=== PATIENT | male | born 1950 | race Caucasian/White ===

== ENCOUNTER 2020-05-22 00:08 | Outpatient (CLI) | payer BC, SELFPAY ==
[2020-05-22 17:26] LABS: SARS-CoV-2 RNA PCR Negative
== END 2020-05-22 00:09 | disposition home or self-care (01) ==
LOC: ANHCOVIDDT 00:08
PROVIDERS: PCP Family Medicine; Visit Provider Internal Medicine Gastroenterology
DX: Z01.812 Encounter for preprocedural laboratory examination (principal); Z20.828 Contact with and (suspected) exposure to other viral communicable diseases
CPT/HCPCS: 87635; C9803; U0003

== ENCOUNTER 2020-05-24 02:12 | Day surgery (SDC) | payer BC, SELFPAY ==
[2020-05-17 13:37] VITALS: BMI 24.2
--- NOTE | 2020-05-23 13:11 | P.PNAN_ITS ---
Anes - Initial Pre Proc Eval Procedure: Operation Date: 05/24/20 08:30 Proposed Procedures p Screening Colonoscopy - Moise Stevenson MD Date/Time: 05/23/20 13:11 Surgeon: Moise Stevenson MD Pre Op Diagnosis: Neoplasm Screening/ Hx Colon Polyps Patient Data Age: 70 Gender: M Height: 1.91 m Weight: 88 kg Allergies Allergy/AdvReac Type Severity Reaction Status Date / Time No Known Allergies Allergy Verified 05/17/20 13:30 Home Medications Medication Instructions Recorded Confirmed Type amiodarone 200 mg tablet 200 mg PO BID tablet 08/02/19 05/17/20 History apixaban 5 mg tablet 5 mg PO BID 08/02/19 05/24/20 History diltiazem HCl 120 mg capsule,24 120 mg PO DAILY 08/02/19 05/17/20 History hr,extended release lisinopril 20 mg tablet 20 mg PO DAILY 08/02/19 05/17/20 History sildenafil 100 mg tablet 100 mg PO DAILY PRN #10 tablet 08/03/19 03/19/20 Rx Patient hx anesthesia problems: none Family hx anesthesia problems: none [facility] Past Medical History Medical History (Updated 03/19/20 @ 14:49 by Delmer Pérez MD) Carpal tunnel syndrome, bilateral CKD (chronic kidney disease) stage 3, GFR 30-59 ml/min Essential (primary) hypertension History of cardioversion 03/2018 History of rectal polyps Paroxysmal atrial fibrillation Right wrist fracture Surgical History Surgical History (Updated 03/19/20 @ 14:18 by Delmer Pérez MD) History of bunionectomy of right great toe 1999 History of carpal tunnel surgery b/l 2012- 2014 Social History Social History Smoking status: Never smoker Second hand tobacco smoke exposure: No Alcohol intake: current Drinks per week: 4 Substance use: never Substance use type: does not use Living arrangements: with family Gender identity (if verbalized by the patient): Male Spiritual care concerns: No Anes - Eval Final PreProcedure Day of Procedure 05/23/20 13:11 Patient weight: normal Heart: regular rate and rhythm Lungs: clear to auscultation and normal air movement Airway: Mallampati scale class II Neurological: alert and oriented Last oral intake: >/= 8 hours ASA classification: III Emergent: no Anesthetic plan: proceed Anesthesia type and monitoring: general GIVS and standard monitoring Informed Consent: The patient's anesthetic plan and its attendant risks and benefits were discussed with the patient/family/POA. Questions were solicited and answers provided to the satisfaction of the patient/family/POA.
[2020-05-24 07:44] VITALS: BP 167/91; PULSE 58; RESP 16; TEMP 36.7; O2SAT 98; BMI 24.7
[2020-05-24] MEDS: LACTATED RINGERS 1,000 ML 150 ML IV CONT (07:55)
--- NOTE | 2020-05-24 08:49 | WPDGICN ---
Assessment and Plan Assessment and plan (1) History of colon polyps: Code(s): Z86.010 - Personal history of colonic polyps Status: Acute Assessment and Plan: Patient has had recurrent colon polyps on several previous colonoscopies. Plan is for colonoscopy now and several year intervals in the future. Eliquis will be held briefly for this procedure. (2) Paroxysmal atrial fibrillation: Code(s): I48.0 - Paroxysmal atrial fibrillation Status: Acute GI Consult Note Consult date/time: 05/24/20 08:49 HPI: Ryan Veloz is a 70 year old male Seen in evaluation at the request of Dr. Pérez. Patient presents for screening colonoscopy. Patient has a history of colon polyps own several previous colonoscopies. Most recent colonoscopy in 2016 so does several tubular adenomas. Patient states that his current weight appetite bowel movements are normal. Patient denies abdominal pain. He has had no blood in his stools. His weight has remained stable. Family history is noncontributory. Past medical history is significant for atrial fibrillation on Eliquis and Pacerone. Review of Systems Review of Systems: All systems reviewed & are unremarkable except as noted in HPI and below PMFSH Past Medical History Medical History (Updated 05/24/20 @ 08:51 by Moise Stevenson MD) Carpal tunnel syndrome, bilateral CKD (chronic kidney disease) stage 3, GFR 30-59 ml/min Essential (primary) hypertension History of cardioversion 03/2018 History of rectal polyps Paroxysmal atrial fibrillation Right wrist fracture Surgical History Surgical History (Updated 03/19/20 @ 14:18 by Delmer Pérez MD) History of bunionectomy of right great toe 1999 History of carpal tunnel surgery b/l 2012- 2014 Social History Social History Smoking status: Never smoker Second hand tobacco smoke exposure: No Alcohol intake: current Drinks per week: 4 Substance use: never Substance use type: does not use Living arrangements: with family Gender identity (if verbalized by the patient): Male Spiritual care concerns: No Meds Home Medications and Allergies Home Medications Medication Instructions Recorded Confirmed Type amiodarone 200 mg tablet 200 mg PO BID tablet 08/02/19 05/17/20 History apixaban 5 mg tablet 5 mg PO BID 08/02/19 05/24/20 History diltiazem HCl 120 mg capsule,24 120 mg PO DAILY 08/02/19 05/17/20 History hr,extended release lisinopril 20 mg tablet 20 mg PO DAILY 08/02/19 05/17/20 History sildenafil 100 mg tablet 100 mg PO DAILY PRN #10 tablet 08/03/19 03/19/20 Rx Allergies Allergy/AdvReac Type Severity Reaction Status Date / Time No Known Allergies Allergy Verified 05/17/20 13:30 Vital Signs Vital Signs - 24 hr 05/24/20 07:44 Temperature 98.1 F Pulse Rate 58 L Respiratory Rate 16 Blood Pressure 167/91 H Pulse Oximetry 98 Exam Narrative: Exam Narrative: Physical exam reveals patient to be alert. Vital signs stable. HEENT exam unremarkable. Lungs are clear to auscultation and percussion. Heart is without murmur or extra sounds. Abdominal exam bowel sounds are present soft nontender with no organomegaly. Digital external rectal exam is normal.
[2020-05-24 09:16] VITALS: BP 117/59; PULSE 45; RESP 13; O2SAT 97
[2020-05-24 09:26] VITALS: BP 109/55; PULSE 46; RESP 13; O2SAT 98
[2020-05-24 09:36] VITALS: BP 138/68; PULSE 49; RESP 15; O2SAT 98
== END 2020-05-24 09:46 | disposition home or self-care (01) ==
PROVIDERS: PCP Family Medicine; Visit Provider Internal Medicine Gastroenterology
PROC: 0DJD8ZZ Inspection of Lower Intestinal Tract, Via Natural or Artificial Opening Endoscopic (ICD-10-PCS; CPT 45378; principal; 2020-05-24 08:30)
DX: Z12.11 Encounter for screening for malignant neoplasm of colon (principal); D12.4 Benign neoplasm of descending colon; K64.8 Other hemorrhoids; I48.0 Paroxysmal atrial fibrillation; Z79.01 Long term (current) use of anticoagulants; I12.9 Hypertensive chronic kidney disease with stage 1 through stage 4 chronic kidney disease, or unspecified chronic kidney disease; N18.3 Chronic kidney disease, stage 3 (moderate); Z86.010 Personal history of colon polyps
CPT/HCPCS: 45385; 88305; J2704; J7120

== ENCOUNTER 2020-06-06 08:40 | Outpatient (CLI) | payer BC, SELFPAY ==
--- NOTE | 2020-06-13 09:22 | WPDPFTINT ---
PFT Interpretation PFT Interpretation: DOS: 06/06/2020 REQUESTING: Dr Keith Connelly REASON FOR TESTING: paroxysmal afib PULMONARY FUNCTION TESTS Results are reliable and reproducible. Spirometry: FEV1 is 79%, mildly decreased. FVC 89%, normal. Decreased FEV1% consistent with airflow obstruction. MPX50-68% severely decreased 44% predicted. No bronchodilator was given. Lung volumes: TLC 106, normal. RV increased 125% consistent with mild air trapping. Diffusion: DLCO 87%, normal. Flow volume loop: Scooping of the expiratory limb consistent with air flow obstruction. IMPRESSION: Mild obstructive ventilatory impairment, severe in the small airways with air trapping, normal diffusion. No bronchodilator was given. Elena Torres MD
--- NOTE | 2020-06-13 09:30 | WPDSIXMINUTE ---
Six Minute Walk Six Minute Walk: DOS: 06/06/2020 REQUESTING: Dr. Keith Connelly REASON FOR TESTING: Paroxysmal atrial fib SIX MINUTE WALK This test was conducted per ATS guidelines. THe
== END 2020-06-06 08:41 | disposition home or self-care (01) ==
PROVIDERS: PCP Family Medicine; Visit Provider Internal Medicine Cardiovascular Disease
DX: I48.0 Paroxysmal atrial fibrillation (principal); J98.8 Other specified respiratory disorders
CPT/HCPCS: 94375; 94726; 94729

== ENCOUNTER 2020-08-08 06:58 | Outpatient (NON) | payer BC, SELFPAY ==
[2020-08-08 23:27] LABS: SARS-CoV-2 RNA PCR Positive
== END 2020-08-08 06:59 ==
PROVIDERS: PCP Family Medicine; Visit Provider Family Medicine
DX: U07.1 COVID-19 (principal)
CPT/HCPCS: 87635; C9803; U0003

== ENCOUNTER 2021-01-21 13:49 | Outpatient (CLI) | payer BC, SELFPAY ==
--- NOTE | ~2021-01-21 | XR_ITS ---
XR lumbar spine 2-3V DATE: 01/21/2021 14:11 INDICATION: Right sciatica. Recent twisting injury. TECHNIQUE: AP, lateral, coned lateral lumbosacral views COMPARISON: None FINDINGS: Minimal levoscoliosis of the lumbar spine. Mild anterolisthesis at L3-4 due to degenerative change at the apophyseal joints. Mild grade 1 anterolisthesis at L5-S1 with suggestion of possible L5 pars inter-articular is defects. Otherwise normal alignment of the lumbar spine. No fracture or bone destruction is evident. Included T11-L5 pedicles are intact. Moderately prominent degenerative disc disease at L1 to, L3-4 and mild degenerative disc disease at t he remaining lumbar interspaces. The sacroiliac joints are intact. Abdominal aortic calcification without evidence of aneurysm. IMPRESSION: Multilevel degenerative disc disease Grade 1 anterolisthesis at L3-4 due to degenerative changes apophyseal joints Grade 1 anterolisthesis at L5-S1, possibly due to L5 pars defects. Consider oblique views of lumbar s pine or CT for confirmation or exclusion of pars defects. Reviewed, dictated and finalized at location A. IMPRESSION: Multilevel degenerative disc disease Grade 1 anterolisthesis at L3-4 due to degenerative changes apophyseal joints Grade 1 anterolisthesis at L5-S1, possibly due to L5 pars defects. Consider obl ique views of lumbar spine or CT for confirmation or exclusion of pars defects.
== END 2021-01-21 13:50 | disposition home or self-care (01) ==
PROVIDERS: PCP Family Medicine; Visit Provider Family Medicine
DX: M54.31 Sciatica, right side (principal); M47.817 Spondylosis without myelopathy or radiculopathy, lumbosacral region
CPT/HCPCS: 72100

== ENCOUNTER 2021-07-25 08:40 | Outpatient (CLI) | payer BC, SELFPAY ==
--- NOTE | ~2021-07-25 | US_ITS ---
EXAMINATION: US art doppler w aleisha BULL EXAM DATE: 07/25/2021 09:23 INDICATION: Peripheral vascular disease. TECHNIQUE: Segmental pressures and plethysmographic and Doppler waveforms of the brachial and lower e xtremity arteries were obtained. There is no prior study for comparison. FINDINGS: Right and left brachial artery pressures of 115 mm Hg and 105 mm Hg, respectively, are concordant (no rmal difference <= 30 mmHg). The right and left thigh-brachial pressure indices are 1.24, 1.17, resp ectively (normal > 1.2). RIGHT LEG: The ankle-brachial index (GLADIS) is 1.10 (normal >= 0.9-1). The great toe-brachial index (TBI) is 0.57 (normal >= 0.65). The lower extremity ratios, segmental pressure gradients as follows; Proximal superficial femoral artery:- 1.24 (143 mmHg). Distal superficial femoral artery: ----- 1.04 (120 mmHg). Popliteal: 1.30 (149 mmHg). Dorsalis pedis: 1.03 (119 mmHg). Posterior tibial: 1.10 (126 mmHg). (Normal gradients <= 20-30 mmHg between adjacent levels on the same leg or the same levels on the two legs). Arterial waveforms are biphasic through popliteal, monophas ic below. LEFT LEG: The ankle-brachial index (GLADIS) is 0.99 (normal >= 0.9-1). The great toe-brachial index (TBI) is 0.62 (normal >= 0.65). The lower extremity ratios, segmental pressure gradients as follows; Proximal superficial femoral artery:- 1.17 (134 mmHg). Distal superficial femoral artery: ----- 1.10 (127 mmHg). Popliteal: 1.10 (127 mmHg). Dorsalis pedis: 0.97 (112 mmHg). Posterior tibial: 0.99 (114 mmHg). (Normal gradients <= 20-30 mmHg between adjacent levels on the same leg or the same levels on the two legs). Arterial waveforms are biphasic through posterior tibial, m onophasic dorsalis pedis. IMPRESSION: 1. Right ankle-brachial index 1.10, normal. 2. Left ankle-brachial index 0.99, normal. 3. Segmental pressures as above. Reviewed, dictated and finalized at location B. R [employer]AK REPA[employer]ER
== END 2021-07-25 08:41 | disposition home or self-care (01) ==
PROVIDERS: PCP Family Medicine; Visit Provider Podiatrist Foot & Ankle Surgery
DX: I73.9 Peripheral vascular disease, unspecified (principal)
CPT/HCPCS: 93923

== ENCOUNTER 2022-05-25 17:17 | Emergency (ER) | payer BC, SELFPAY ==
[2022-05-25] VITALS (12 sets, daily range): BP systolic 130–185; BP diastolic 90–115; PULSE 69–86; RESP 13–17; TEMP 37; O2SAT 97–100
--- NOTE | ~2022-05-25 | XR_ITS ---
EXAMINATION: XR chest 1V portable Exam Date/Time: 05/25/2022 17:40 CDT HISTORY: cp Comparison: None available. RESULT: Lines, tubes, and devices: None. Lungs and pleura: Linear bibasilar opacities likely represent atelectasis or scar, otherwise clear. Cardiomediastinal silhouette: Stable. Other: No acute osseous or upper abdominal finding. IMPRESSION: No acute cardiopulmonary process. Reviewed, dictated and finalized at location K.
--- NOTE | 2022-05-25 17:18 | ECG_ITS ---
Measurements Intervals [place] Rate: 89 P: TX: 0 QRS: 20 QRSD: 89 T: 33 QT: 362 QTc: 441 Interpretive Statements ATRIAL FIBRILLATION LOW QRS VOLTAGE IN PRECORDIAL LEADS BORDERLINE ST-T WAVE ABNORMALITY- INFERIOR LEADS BASELINE ARTIFACT- II, III, AVF ABNORMAL ECG NO PREVIOUS ECG AVAILABLE FOR COMPARISON Electronically Signed On 05-25-2022 21:48:13 CDT by Joey Brown D.O.
[2022-05-25 17:42] LABS: Basophils Percent Auto 0.4 % (0.2-1.2); Eosinophils Absolute Auto 0.1 K/mm3 (0-0.3); Eosinophils Percent Auto 1.4 % (0-4.4); Hematocrit 45.3 % (42.0-52.0); Hemoglobin 14.8 g/dL (14.0-18.0); Immature Granulocyte Absolute 0.03 K/mm3 (0.00-0.031); Immature Granulocyte Percent A 0.3 % (0-0.5); Lymphocytes Absolute Auto 2.41 K/mm3 (0.9-3.2); Lymphocytes Percent Auto 23.4 % (18.3-44.2); Mean Corpuscular HGB Conc 32.7 g/dl (32-36); Mean Corpuscular Hemoglobin 31.2 pg (26-34); Mean Corpuscular Volume 95.6 fl (80-100); Mean Platelet Volume 10.8 fl (7.4-10.4); Monocytes Absolute Auto 0.9 K/mm3 (0.1-0.6); Monocytes Percent Auto 8.8 % (2.6-8.5); Neutrophils Absolute Auto 6.8 K/mm3 (1.3-6.7); Neutrophils Percent Auto 65.7 % (45.5-73.1); Platelet Count Result 200 k/mm3 (150-375); Red Blood Count 4.74 M/mm3 (4.6-6.20); Red Cell Distribution Width 13.9 % (11.5-14.5); White Blood Count 10.3 K/mm3 (4.5-10.0)
[2022-05-25 17:51] LABS: INR 1.1; Prothrombin Time 14.1 Seconds (11.1-14.7)
[2022-05-25 17:52] LABS: Partial Thromboplastin Time 26.4 SECONDS (22.3-36.8)
--- NOTE | 2022-05-25 17:52 | ED.CHESTPAIN ---
HPI - Chest Pain General Chief Complaint: Chest Pain Stated Complaint: HTN/ CHEST DISCOMFORT Time Seen by Provider: 05/25/22 17:43 History of Present Illness HPI narrative: 72-year-old male history of hypertension and A. fib presents to the emergency room for evaluation of midsternal chest pain that has been consistently present since yesterday after eating dinner. Patient describes the pain as a dull/pressure sensation that is not alleviated or aggravated by anything. Patient states last night when he began developing the chest pressure, he went home to evaluate his blood pressure noticing that it was high for him. Patient denies any associated symptoms such as shortness of breath, dizziness, radiating pain or near syncope. Related Data Home Medications Medication Instructions Recorded Confirmed apixaban 5 mg tablet (Eliquis) 5 mg PO BID 08/02/19 04/01/21 diltiazem HCl 120 mg capsule,24 120 mg PO DAILY 08/02/19 04/01/21 hr,extended release lisinopril 20 mg tablet 20 mg PO DAILY 08/02/19 04/01/21 amiodarone 400 mg tablet 400 mg PO BID 12/28/20 04/01/21 Allergies Allergy/AdvReac Type Severity Reaction Status Date / Time No Known Allergies Allergy Verified 05/25/22 17:22 Review of Systems Review of Systems: CONSTITUTIONAL: Denies fever, chills, or sweats. EYES: Denies visual changes, redness, or discharge. ENT: Denies rhinorrhea, congestion, sore throat, or otalgia. CARDIOVASCULAR: Reports chest pain, denies palpitations and edema. RESPIRATORY: Denies cough or dyspnea. GASTROINTESTINAL: Denies abdominal pain, nausea, vomiting, or diarrhea. GENITOURINARY: Denies dysuria or hematuria. SKIN: Denies rash or itching. MUSCULOSKELETAL: Denies back pain, joint pain, or myalgia. NEUROLOGIC: Denies headache, numbness, dizziness, or weakness. PSYCHIATRIC: Denies anxiety or depression. [facility] Past Medical History Medical History Carpal tunnel syndrome, bilateral CKD (chronic kidney disease) stage 3, GFR 30-59 ml/min Essential (primary) hypertension History of cardioversion 03/2018 History of rectal polyps Paroxysmal atrial fibrillation Right wrist fracture Surgical History Surgical History History of bunionectomy of right great toe 1999 History of carpal tunnel surgery b/l 2012- 2014 Family History Family History Other No pertinent family history Social History Social History Smoking status: Never smoker Second hand tobacco smoke exposure: No Alcohol intake: current Drinks per week: 4 Substance use: never Substance use type: does not use Additional living arrangements comments: Gender identity (if verbalized by the patient): Male Spiritual care concerns: No Exam Narrative: GENERAL: Well-appearing, well-nourished, no physical limitations, and in no acute distress. HEAD: Normocephalic, atraumatic. EYES: Conjunctivae normal, PERRLA and EOMI. CHEST: Clear to auscultation. No respiratory distress. No wheezes rales or rhonchi. No tenderness. HEART: Irregular rate and irregular rhythm. No murmur heard. Normal peripheral pulses. ABDOMEN: Soft, nontender, nondistended, normal active bowel sounds. EXTREMITIES: Normal range of motion. No edema. No clubbing or cyanosis SKIN: Warm, dry, no rash. No noted wounds NEURO: No focal deficits. Alert and oriented x3. MAEW. CN's II-XI intact bilaterally, normal gait PSYCH: Cooperative. Normal mood and affect. Course Course Emergency Course: 1999: Patient is pain free. Discussed findings, and his heart score. Recommended admission for observation. Patient is requesting to go home. Discussed risks and benefits of not continuing evaluation, and reasons to return to the ER. Vital Signs Vital signs: Vital Signs Temperature 37.0
[2022-05-25] MEDS: ASPIRIN 81 MG CHEWABLE TABLET 324 MG PO (18:00)
--- NOTE | 2022-05-25 19:22 | PC.NURSE ---
Assumed care of pt at this time. Pt alert and upright on stretcher, updated on POC. Pt able to ambulate with steady gait to restroom.
--- NOTE | 2022-05-25 19:44 | PC.NURSE ---
This RN called laboratory to follow up on Chemistry results. Stated they will result soon.
[2022-05-25 19:48] LABS: Alanine Aminotransferase 22 U/L (6-50); Albumin Level 4.2 g/dL (3.5-5.1); Alkaline Phosphatase 64 U/L (38-126); Anion Gap 11 mmol/L (8-16); Aspartate Amino Transferase 26 U/L (17-59); Bilirubin,Total 0.8 mg/dL (0.2-1.3); Blood Urea Nitrogen 17 mg/dL (9-20); Calcium 8.6 mg/dL (8.4-10.2); Carbon Dioxide 25 mmol/L (22-30); Chloride 105 mmol/L (98-107); Estimated CRCL calculation 69 ml/min; Estimated Glomerular Filt Rate > 60; Glucose 93 mg/dL (65-110); Lipase 69 U/L (23-300); Potassium 3.8 mmol/L (3.4-5.0); Sodium 141 mmol/L (137-145); Troponin I < 0.012 ng/mL (0.000-0.034)
== END 2022-05-25 20:10 | disposition home or self-care (01) ==
PROVIDERS: Emergency Medicine; Emergency Provider Nurse Practitioner Family; PCP Family Medicine
DX: R07.89 Other chest pain (principal); I12.9 Hypertensive chronic kidney disease with stage 1 through stage 4 chronic kidney disease, or unspecified chronic kidney disease; N18.30 Chronic kidney disease, stage 3 unspecified; I48.0 Paroxysmal atrial fibrillation; Z79.01 Long term (current) use of anticoagulants
CPT/HCPCS: 36415; 71045; 80053; 83690; 84484; 85025; 85610; 85730; 93005; 99284; A9270

== ENCOUNTER 2022-06-09 08:05 | Outpatient (CLI) | payer BC, SELFPAY ==
[2022-06-09 20:13] LABS: Cholesterol 168 mg/dL (0-200); HDL Direct 44 mg/dL; Triglycerides 92 mg/dL (<150)
[2022-06-09 20:27] LABS: LDL Cholesterol Direct 100 mg/dL
[2022-06-09 20:49] LABS: Prostate Specific Antigen 1.4 ng/mL (< OR = 4.0)
== END 2022-06-09 08:06 | disposition home or self-care (01) ==
LOC: ANHGOSHLAB 08:06
PROVIDERS: PCP Family Medicine; Visit Provider Nurse Practitioner
DX: Z12.5 Encounter for screening for malignant neoplasm of prostate (principal); I10 Essential (primary) hypertension
CPT/HCPCS: 36415; 80061; 84153; G0103

== ENCOUNTER 2022-10-30 07:57 | Outpatient (CLI) | payer BC, SELFPAY | END 2022-10-30 07:58 | disposition home or self-care (01) | PROVIDERS: PCP Family Medicine; Visit Provider Surgery | DX: K40.90 Unilateral inguinal hernia, without obstruction or gangrene, not specified as recurrent (principal); Z01.818 Encounter for other preprocedural examination | CPT/HCPCS: 36415; 86850; 86900; 86901 ==

== ENCOUNTER 2022-11-05 00:33 | Day surgery (SDC) | payer BC, SELFPAY ==
--- NOTE | 2022-10-29 15:27 | PC.NURSE ---
Report to the Outpatient Waiting Room, entrance under the green pavilion located off [address], at time __0900 on date _11/05/22 . Planned Procedure Time: __1100 . Time changes happen often and if your time is changed the preop area will call you the afternoon before. - You and your visitor will be asked to self-screen and do not enter if you have any COVID symptoms. - Only one visitor is requested with a max of two and NO children visitors are allowed at this time. - The patient visitor may be requested to leave or wait in car when not with patient due to distancing restrictions. - A mask is optional within the hospital at this time. Patients may have clear liquids (water, carbonated beverages, clear teas, apple juice) until 3 hours prior to surgery with a maximum of 20 ounces. - No food from midnight until time of surgery - Infants may have breast milk until 4 hours before surgery, formula 6 hours prior to surgery. - Children will be allowed to drink immediately following surgery. If applicable, please bring a bottle or sippy cup to assist with drinking. Juice, water, soda, and popsicles are readily available. For infants on formula, please bring formula the day of surgery. Pacifiers are allowed. Take the following medications with a SIP of water the morning of surgery: __NONE DO NOT STOP ANY OF YOUR OTHER PRESCRIPTION MEDICATIONS PRIOR TO SURGERY ?EXCEPT THE FOLLOWING Medications to discontinue per physician __PATIENT STATES HOLD ELIQUIS 2 DAYS PRE OP PER DR HARDEN. LAST DOSE 11/02/22. ALL VITAMINS 3 DAYS PRE OP. LAST DOSE 11/01/22 HIBICLENS SHOWER MORNING OF SURGERY Please no make-up, nail spanish, hairspray, perfume, deodorant, or body powder the day of surgery. No jewelry (including any body piercings) or valuables the day of surgery, leave them at home. Please take a shower or bath the night before, or the morning of, surgery with an antibacterial soap. Wear comfortable, loose fitting clothing. Children are encouraged to wear pajamas. - Jewelry must be removed prior to entering the operating room. Rings and piercings that are not removed may be cut off. - The hospital will not accept responsibility for valuables. - Please leave all valuables, including medications, at home the day of surgery. If you are going home after surgery, a licensed bellman driver must drive you home. - NO public transportation without another adult if you receive anesthesia. - We recommend that an adult stay with you for 24 hours following discharge. - We also recommend that you do not drive, make important decision, drink alcoholic beverages, or take any drugs that were not prescribed by your health care provider for at least 24 hours after your discharge syeda Follow any additional instructions given to you from your surgeon. If you or anyone in your household have experienced Covid symptoms in the past week, please notify your surgeon or the nurse liaison at the phone number below for possible testing. Telephone instructions given to ___PATIENT and asked if any additional questions and then verbalized understanding. Patient advised to call surgeon office or pre surgery nurse liaison [phone] if any additional questions.
[2022-10-29 15:38] VITALS: BMI 25.7
[2022-11-05] VITALS (8 sets, daily range): BP systolic 118–146; BP diastolic 72–98; PULSE 78–104; RESP 13–18; TEMP 36.5–36.7; O2SAT 94–98
--- NOTE | 2022-11-05 08:20 | WPDHPUPDATE1 ---
History and Physical Update Update Date/Time: 11/05/22 08:20 History and Physical has been reviewed, including an updated exam of the patient. There are NO changes in the patient's condition. Risks, benefits, and alternatives have been discussed and questions answered. Patient agrees to proceed with procedure.
[2022-11-05] MEDS: ACETAMINOPHEN 500 MG TABLET 1000 MG PO (09:31)
[2022-11-05] MEDS: KETOROLAC 15 MG/ML VIAL (*BKC) IV PUSH (09:32)
[2022-11-05] MEDS: LACTATED RINGERS 1,000 ML 30 ML IV CONT ×2 (09:46→13:40)
--- NOTE | 2022-11-05 10:33 | WPDHPUPDATE1 ---
History and Physical Update Update Date/Time: 11/05/22 10:33 History and Physical has been reviewed, including an updated exam of the patient. There are NO changes in the patient's condition. Risks, benefits, and alternatives have been discussed and questions answered. Patient agrees to proceed with procedure.
--- NOTE | 2022-11-05 10:43 | WPDANESEPPF ---
Anes - Initial Pre Proc Eval Procedure: Operation Date: 11/05/22 11:00 Proposed Procedures p Robotic Assisted Laparoscopic Left Inguinal Hernia Repair - Sam Tapia MD Date/Time: 11/05/22 10:43 Surgeon: Sam Tapia MD Pre Op Diagnosis: left Inguinal hernia Patient Data Age: 72 Gender: M Height: 1.91 m Weight: 91.1 kg Last Vital Signs Temp 98.0 F 11/05/22 09:00 Pulse 87 11/05/22 09:00 Resp 16 11/05/22 09:00 BP 118/86 11/05/22 09:00 Pulse Ox 98 11/05/22 09:00 O2 Del Method Room Air 11/05/22 09:00 Allergies Allergy/AdvReac Type Severity Reaction Status Date / Time No Known Allergies Allergy Verified 11/05/22 10:18 Home Medications Medication Instructions Recorded Confirmed Type apixaban 5 mg tablet (Eliquis) 5 mg PO BID 08/02/19 11/05/22 History diltiazem HCl 120 mg capsule,24 120 mg PO DAILY 08/02/19 11/05/22 History hr,extended release lisinopril 20 mg tablet 40 mg PO DAILY 05/26/22 11/05/22 History adspaakt-kgrzzige-oqbpt acid 400 1 tablet PO DAILY 10/29/22 11/05/22 History mcg-vit K 20 mcg-lycop 300 mcg tablet Patient hx anesthesia problems: none Family hx anesthesia problems: none Results Review: All pre-operative results and documents have been reviewed as part of the pre-operative evaluation. [facility] Past Medical History Medical History Carpal tunnel syndrome, bilateral CKD (chronic kidney disease) stage 3, GFR 30-59 ml/min Essential (primary) hypertension History of cardioversion 03/2018 History of rectal polyps Paroxysmal atrial fibrillation Right wrist fracture Surgical History Surgical History History of bunionectomy of right great toe 1999 History of carpal tunnel surgery b/l 2012- 2014 Family History Family History Father Acute myocardial infarction Other Cerebrovascular accident Social History Social History Smoking status: Never smoker Second hand tobacco smoke exposure: No Alcohol intake: current Drinks per week: 1 Substance use: never Substance use type: does not use Lack of Transportation: No Current Housing: I Have Housing Concerned About Future Housing: No Difficulty Paying Gas/Electric Bills: No Difficulty Paying for Meds: No Currently Unemployed: No Education: Bachelor's Degree Difficulty w/ Childcare or Family Care: No Living arrangements: with family Additional living arrangements comments: Occupation/Education: retired Gender identity (if verbalized by the patient): Male Spiritual care concerns: No Agree to blood products: Yes Anes - Eval Final PreProcedure Day of Procedure 11/05/22 10:43 Patient weight: normal Heart: irregular rhythm Lungs: clear to auscultation Airway: Mallampati scale Neurological: alert and oriented Last oral intake: >/= 8 hours ASA classification: III Emergent: no Anesthetic plan: proceed Anesthesia type and monitoring: general ETT and standard monitoring Results Review: All pre-operative results and documents have been reviewed as part of the pre-operative evaluation. Informed Consent: The patient's anesthetic plan and its attendant risks and benefits were discussed with the patient/family/POA. Questions were solicited and answers provided to the satisfaction of the patient/family/POA.
[2022-11-05] MEDS: ceFAZolin 2 GM/D5W 50 ML 2 GM/50 ML BAG IVPB (11:21)
[2022-11-05] MEDS: BUPIVACAINE/EPINEPHRINE 0.5% 50 ML VIAL 30 ML INFILTRATE (11:33)
--- NOTE | 2022-11-05 13:59 | P.OP_ITS ---
Procedure Note - Detailed Date of Procedure 11/05/22 Pre-op Diagnosis left Inguinal hernia Post-op Diagnosis Same Procedure Performed Robotic laparoscopic left inguinal hernia repair with 3D max mesh Surgeon Sam Tapia MD Air Conditioning Mechanic Moise DELATORRE Anesthesia General and Spinal (0.5% Marcaine with epinephrine) Indications Patient has noticed intermittent bulge in the left groin. Occasionally it is painful. He was seen in the office and found to have a left inguinal hernia. He is taken to surgery now for robotic laparoscopic left inguinal hernia repair. Findings Patient had an indirect left inguinal hernia Description of Procedure Patient was taken to surgery and induced into general anesthesia. The abdomen is prepped and draped. Initial trocar placement was a 5 mm applied Medical optical trocar. It was placed just below the left costal margin in the left upper quadrant. When the trocar was placed we insufflated. We then placed 8 mm robotic trocars just above the umbilicus 1 on the right side 1 on the left side 1 just above the umbilicus. The surgeon then docked the camera and targeted the robot. We then position the bilingual administrative assistant arms appropriately. The surgeon went to the console. The anatomy was reviewed. A peritoneal flap was started in the lower anterior abdominal wall. This proceeded from the median umbilical ligament laterally. We then dissected this peritoneal flap both laterally and medially down to approximately the level of the cord vessels. Medially continued dissection revealed the pubic tubercle and Srinivas's ligament. Laterally we dissected to below the pectinate line. Then, attention was turned to the hernia sac. The hernia sac was gently reduced in freed from fibrous attachments. Vascular structures and cord structures were carefully dissected off the hernia sac. Eventually the hernia sac was completely reduced and freed from any fibrous attachments to the inguinal canal. We then further dissected so that we were a good 2 cm below the pubic tubercle all across the lower aspect of the plane of dissection. Cautery had been used during the dissection. Bleeding had been minimal. A 12 x 17 cm 3D max mesh was brought into the field. It was positioned appropriately over the direct and indirect space. A 3-0 Vicryl suture was then used to suture the mesh to Srinivas's ligament. It was also sutured to the anterior abdominal wall medial to the inferior epigastric vessels and lateral to the inferior epigastric vessels. With the mesh in position, a 2 0 V lock was brought into the field. The peritoneal flap was rip sed with running V lock suture. All looked good. There were no holes in the peritoneal flap. The mesh and not curled at its posterior aspect. We evacuated CO2 and undocked the robot. The trocars were removed. Skin wounds were closed with subcuticular 4-0 Monocryl skin suture. The wounds were dressed with Exofin surgical adhesive. Patient was awakened and taken to recovery in good condition . Sponge and needle counts were correct x2. Implants 17 x 12 cm 3D max mesh Estimated Blood Loss -5 Drains No Packing No Pathology None sent Complications No immediate complications Condition Stable Disposition PACU [facility] Billing Surgery - Charge Forward: Surgery Billing (Robotic laparoscopic repair left inguinal hernia with mesh)
== END 2022-11-05 15:40 | disposition home or self-care (01) ==
PROVIDERS: PCP Family Medicine; Visit Provider Surgery
PROC: 8E0Y4CZ Robotic Assisted Procedure of Lower Extremity, Percutaneous Endoscopic Approach (ICD-10-PCS; CPT 49650; principal; 2022-11-05 11:00)
DX: K40.90 Unilateral inguinal hernia, without obstruction or gangrene, not specified as recurrent (principal); I12.9 Hypertensive chronic kidney disease with stage 1 through stage 4 chronic kidney disease, or unspecified chronic kidney disease; N18.30 Chronic kidney disease, stage 3 unspecified; I48.0 Paroxysmal atrial fibrillation; Z79.01 Long term (current) use of anticoagulants
CPT/HCPCS: 49650; S2900; A9270; C1781; J0690; J1100; J1885; J2250; J2405; J2704; J2710; J3010; J7120

== ENCOUNTER 2023-06-05 08:56 | Outpatient (CLI) | payer BC, SELFPAY ==
[2023-06-05 16:40] LABS: Basophils Percent Auto 0.4 % (0.2-1.2); Eosinophils Absolute Auto 0.1 K/mm3 (0-0.3); Eosinophils Percent Auto 1.3 % (0-4.4); Hematocrit 46.2 % (42.0-52.0); Hemoglobin 14.8 g/dL (14.0-18.0); Immature Granulocyte Absolute 0.03 K/mm3 (0.00-0.031); Immature Granulocyte Percent A 0.3 % (0-0.5); Lymphocytes Absolute Auto 1.95 K/mm3 (0.9-3.2); Lymphocytes Percent Auto 20.6 % (18.3-44.2); Mean Corpuscular Hemoglobin 31.3 pg (26-34); Mean Corpuscular Volume 97.7 fl (80-100); Mean Platelet Volume 11.2 fl (7.4-10.4); Monocytes Absolute Auto 0.7 K/mm3 (0.1-0.6); Monocytes Percent Auto 7.8 % (2.6-8.5); Neutrophils Absolute Auto 6.6 K/mm3 (1.3-6.7); Neutrophils Percent Auto 69.6 % (45.5-73.1); Platelet Count Result 242 k/mm3 (150-375); Red Blood Count 4.73 M/mm3 (4.6-6.20); Red Cell Distribution Width 14.3 % (11.5-14.5); White Blood Count 9.5 K/mm3 (4.5-10.0)
[2023-06-05 19:40] LABS: Alanine Aminotransferase 23 U/L (6-50); Albumin Level 4.2 g/dL (3.5-5.1); Alkaline Phosphatase 73 U/L (38-126); Anion Gap 6 mmol/L (8-16); Aspartate Amino Transferase 41 U/L (17-59); Bilirubin,Total 1.4 mg/dL (0.2-1.3); Blood Urea Nitrogen 17 mg/dL (9-20); Carbon Dioxide 30 mmol/L (22-30); Chloride 104 mmol/L (98-107); Cholesterol 164 mg/dL (0-200); Estimated Glomerular Filt Rate 59; Glucose 94 mg/dL (65-110); HDL Direct 49 mg/dL; Potassium 4.6 mmol/L (3.4-5.0); Sodium 140 mmol/L (137-145); Triglycerides 73 mg/dL (<150)
[2023-06-05 20:30] LABS: LDL Cholesterol Direct 93 mg/dL
[2023-06-09 03:48] LABS: Vitamin D 1,25 (OH)2 Total 44 pg/mL (18-72); Vitamin D2 1,25 (OH)2 <8 pg/mL; Vitamin D3 1,25 (OH)2 44 pg/mL
== END 2023-06-05 08:57 | disposition home or self-care (01) ==
LOC: ANHGOSHLAB 08:57
PROVIDERS: PCP Family Medicine; Visit Provider Nurse Practitioner Family
DX: E55.9 Vitamin D deficiency, unspecified (principal); I10 Essential (primary) hypertension
CPT/HCPCS: 36415; 80053; 80061; 82652; 85025

== ENCOUNTER 2024-06-06 11:12 | Outpatient (CLI) | payer BC, SELFPAY ==
[2024-06-06 13:28] LABS: Basophils Percent Auto 0.4 % (0.2-1.2); Eosinophils Absolute Auto 0.1 K/mm3 (0-0.3); Eosinophils Percent Auto 0.9 % (0-4.4); Hematocrit 47.4 % (42.0-52.0); Hemoglobin 15.5 g/dL (14.0-18.0); Immature Granulocyte Absolute 0.03 K/mm3 (0.00-0.031); Immature Granulocyte Percent A 0.3 % (0-0.5); Lymphocytes Percent Auto 18.4 % (18.3-44.2); Mean Corpuscular HGB Conc 32.7 g/dl (32-36); Mean Corpuscular Hemoglobin 31.9 pg (26-34); Mean Corpuscular Volume 97.5 fl (80-100); Monocytes Absolute Auto 0.7 K/mm3 (0.1-0.6); Monocytes Percent Auto 6.9 % (2.6-8.5); Neutrophils Absolute Auto 7.5 K/mm3 (1.3-6.7); Neutrophils Percent Auto 73.1 % (45.5-73.1); Platelet Count Result 220 k/mm3 (150-375); Red Blood Count 4.86 M/mm3 (4.6-6.20); Red Cell Distribution Width 13.9 % (11.5-14.5); White Blood Count 10.3 K/mm3 (4.5-10.0)
[2024-06-06 13:36] LABS: Alanine Aminotransferase 19 U/L (6-50); Albumin Level 4.4 g/dL (3.5-5.1); Alkaline Phosphatase 72 U/L (38-126); Anion Gap 7 mmol/L (4-12); Aspartate Amino Transferase 62 U/L (17-59); Bilirubin,Total 1.7 mg/dL (0.2-1.3); Blood Urea Nitrogen 20 mg/dL (9-20); Calcium 9.1 mg/dL (8.4-10.2); Carbon Dioxide 28 mmol/L (22-30); Chloride 102 mmol/L (98-107); Cholesterol 167 mg/dL (0-200); Estimated Glomerular Filt Rate 59; Glucose 95 mg/dL (65-110); HDL Direct 50 mg/dL; Potassium 4.4 mmol/L (3.4-5.0); Sodium 137 mmol/L (137-145); Triglycerides 65 mg/dL (<150)
[2024-06-06 13:50] LABS: LDL Cholesterol Direct 93 mg/dL
[2024-06-06 14:07] LABS: Prostate Specific Antigen 1.5 ng/mL (< OR = 4.0)
[2024-06-06 14:17] LABS: Vitamin D 25 Hydroxy 62.2 ng/mL
[2024-06-06 14:31] LABS: Thyroid Stimulating Hormone Reflex 0.965 uIU/mL (0.465-4.68)
== END 2024-06-06 11:13 | disposition home or self-care (01) ==
LOC: ANHGOSHLAB 11:13
PROVIDERS: PCP Family Medicine; Visit Provider Nurse Practitioner Family
DX: Z00.00 Encounter for general adult medical examination without abnormal findings (principal); I10 Essential (primary) hypertension; E55.9 Vitamin D deficiency, unspecified; Z12.5 Encounter for screening for malignant neoplasm of prostate
CPT/HCPCS: 36415; 80053; 80061; 82306; 84153; 84443; 85025; G0103

== ENCOUNTER 2024-08-26 09:37 | Outpatient (CLI) | payer MEDICARE, SELFPAY ==
[2024-08-26 18:46] LABS: Alanine Aminotransferase 19 U/L (6-50); Albumin Level 4.2 g/dL (3.5-5.1); Alkaline Phosphatase 68 U/L (38-126); Anion Gap 5 mmol/L (4-12); Aspartate Amino Transferase 27 U/L (17-59); Bilirubin,Total 1.2 mg/dL (0.2-1.3); Blood Urea Nitrogen 21 mg/dL (9-20); Calcium 9.3 mg/dL (8.4-10.2); Carbon Dioxide 27 mmol/L (22-30); Chloride 106 mmol/L (98-107); Estimated Glomerular Filt Rate > 60; Glucose 92 mg/dL (65-110); Sodium 138 mmol/L (137-145)
== END 2024-08-26 09:38 | disposition home or self-care (01) ==
LOC: ANHGOSHLAB 09:38
PROVIDERS: PCP Family Medicine; Visit Provider Family Medicine
DX: R73.9 Hyperglycemia, unspecified (principal); I10 Essential (primary) hypertension; E53.8 Deficiency of other specified B group vitamins; G57.93 Unspecified mononeuropathy of bilateral lower limbs; M16.0 Bilateral primary osteoarthritis of hip
CPT/HCPCS: 36415; 80053; 82607; 83036; 84443

== ENCOUNTER 2024-08-26 09:45 | Outpatient (CLI) | payer MEDICARE, SELFPAY ==
--- NOTE | ~2024-08-26 | XR_ITS ---
Right ankle Technique: AP, oblique, and lateral views were obtained. Clinical History: Pain Findings: No acute fracture or dislocation is seen. Probable chronic fracture fragment or heterotopic ossification at the region of the deltoid ligament. Osseous alignment is anatomic. Ankle mortise and other visualized joint spaces are preserved. Soft tissues are otherwise unremarkable. Impression: No acute abnormality. Chronic fracture fragment or heterotopic ossification at the region of the deltoid ligament. Reviewed, dictated and finalized at location . INUOUS IMPROVEMENT FACILITATOR Impression: No acute abnormality. Chronic fracture fragment or heterotopic ossification at the region of the delt oid ligament.
--- NOTE | ~2024-08-26 | XR_ITS ---
AP view of the pelvis and AP and lateral views of the right hip Clinical history: Pain Findings: No acute fracture or dislocation is seen. Osseous alignment is anatomic. There is mild dege nerative change of both hip joint. Soft tissues are unremarkable. Impression: Mild degenerative change of both hip joints. Reviewed, dictated and finalized at location . OF MUSIC Impression: Mild degenerative change of both hip joints.
== END 2024-08-26 09:46 | disposition home or self-care (01) ==
LOC: GOSHIMG 09:46
PROVIDERS: PCP Family Medicine; Visit Provider Family Medicine
DX: M16.0 Bilateral primary osteoarthritis of hip (principal)
CPT/HCPCS: 73502; 73610

== ENCOUNTER 2024-10-11 07:39 | Outpatient (CLI) | payer MEDICARE, SELFPAY ==
--- NOTE | ~2024-10-11 | MR_ITS ---
EXAMINATION: MR hip RT wo con DATE: 10/11/2024 08:24 INDICATION: Right hip pain TECHNIQUE: Magnetic resonance imaging (MRI) of the right hip was performed without intravenous contr ast. Sequences included full-field axial PD-weighted FS FSE and T1-weighted FSE, coronal of the pelvi s with PD-weighted FS FSE, T2-weighted FSE and T1-weighted FSE, small field of view of the affected hip with axial PD-weighted FS FSE, sagittal PD-weighted FS FSE, coronal PD-weighted FS FSE and coron al T2 weighted FSE. Additional radial T1-weighted FGR oriented orthogonal to the acetabular rim were obtained for evaluation of the labrum. COMPARISON: Right hip radiographs dated 08/26/2024 FINDINGS: Bones/labrum/cartilage: Mild lumbar levocurvature with moderate spondylosis. No fracture, avascular necrosis or pathologic m arrow replacing process. Diffuse tearing of the right acetabular labrum. There is moderate right hip osteoarthritis with moderate severity nonuniform joint space narrowing with partial thickness cartila ge loss but without degenerative subchondral changes. Similar degree of osteoarthritis suggested at t he contralateral left hip on the larger [id number] images but with small region of more severe com promise with subarticular cystlike change at the superomedial aspect of the femoral head. There appea rs be a less severe partial thickness tear at the superolateral left acetabular labrum, this is not d iagnostically evaluated on the larger [id number]-[id number]-zlcc images. Osteoarthritis at the bilateral sacral il iac joints with developing ankylosis at the anterior joint spaces. Fluid: Symmetric physiologic amount of fluid within both hip joints. Mild increased signal underlying the di stal left gluteus medius tendon consistent with mild left gluteus medius bursitis. Soft tissues: Normal and symmetric muscle bulk and signal in the pelvis and visualized proximal thighs. There is an elongated lenticular intramuscular lipoma measuring 8.8 x 1.9 x 1.5 cm seen along the lateral margin of the proximal left sartorius muscle. Mild tendinopathy of the bilateral gluteus medius and minimus tendons. Small low signal intensity focus of calcific tendinitis at the junction of the right gluteu s medius and minimus tendons with amorphous calcification seen at this location on the prior radiogra phs. The bilateral iliopsoas and proximal hamstring tendons are normal. There are partially visualize d large cyst at the lower poles of both kidneys measuring at least 8 cm and 7.2 cm on the right. Very small bilateral fat-containing inguinal hernias. Limited evaluation of visceral organs of the pelvis is unremarkable. No pathologically enlarged pelvic/inguinal lymphadenopathy. IMPRESSION: 1. 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 2. Mild tendinopathy of the bilateral gluteus medius and minimus tendons with small focus of calcific tendinitis on the right and mild gluteus medius bursitis on the left. 3. Mild lumbar levocurvature with moderate spondylosis. Reviewed, dictated and finalized at location A. NUE ENFORCEMENT AGENT IMPRESSION: 1. 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 2. Mild tendinopathy of the bilateral gluteus medius and minimus tendons with s mall focus of calcific tendinitis on the right and mild gluteus medius bursitis on the left. 3. Mild lumbar levocurvature with moderate spondylosis.
== END 2024-10-11 07:40 | disposition home or self-care (01) ==
LOC: MICIMG 07:40
PROVIDERS: PCP Family Medicine; Visit Provider Nurse Practitioner Family
DX: M16.0 Bilateral primary osteoarthritis of hip (principal); S73.191A Other sprain of right hip, initial encounter; S73.192A Other sprain of left hip, initial encounter; M65.251 Calcific tendinitis, right thigh; M43.8X6 Other specified deforming dorsopathies, lumbar region; M43.06 Spondylolysis, lumbar region; X58.XXXA Exposure to other specified factors, initial encounter
CPT/HCPCS: 73721

== ENCOUNTER 2024-11-01 13:35 | Outpatient (CLI) | payer MEDICARE, SELFPAY ==
--- NOTE | ~2024-11-01 | US_ITS ---
EXAMINATION: US art doppler w press LE BI DATE: 11/01/2024 14:42 INDICATION: Peripheral vascular disease TECHNIQUE: Segmental pressures and plethysmographic and Doppler waveforms of the brachial and lower e xtremity arteries were obtained. COMPARISON: None. FINDINGS: Right and left brachial artery pressures of 129 mm Hg and 125 mm Hg, respectively, are concordant (no rmal difference <= 30 mmHg). The right and left high-thigh pressure indices are 1.12 and 1.05, respec tively (normal > 1.2). The right ankle-brachial index (GLADIS) is 1.21 (normal >= 0.9-1). The right great toe-brachial index (T BI) is 0.66 (normal >= 0.6-0.8). The right lower extremity segmental pressure gradients are increased between the right iiakb-dgg-nfgx popliteal artery and the arteries at the right ankle (normal gradie nts <= 20-30 mmHg between adjacent levels on the same leg or the same levels on the two legs). Arteri al waveforms are triphasic at the right common femoral artery, biphasic at the right superficial femo ral artery and monophasic in the more distal arteries with brisk systolic upstrokes throughout. The left GLADIS is 1.19. The left TBI is 0.49. The left lower extremity segmental pressure gradients are increased between the right and left qsggw-xcz-tbwm popliteal arteries. Arterial waveforms are bipha sic left common femoral, superficial femoral, popliteal and posterior tibial arteries and biphasic at the left dorsalis pedis artery with brisk systolic upstrokes throughout. IMPRESSION: 1. Mild arterial occlusive disease to bilateral lower limbs with mildly decreased bilateral high thig h pressure indices and mildly decreased left TBI. Reviewed, dictated and finalized at location B. TRY OFFAL WORKER IMPRESSION: 1. Mild arterial occlusive disease to bilateral lower limbs with mildly decreas ed bilateral high thigh pressure indices and mildly decreased left TBI.
--- OUTSIDE RECORDS SUMMARY | 2024-11-01 15:35 | XMS_ITS | Referral Summary ---
Author Organization [facility] [address] Address [address] [place] [address] Care Team Providers Care Hand Molder Meat Name Role Phone Malaika Pérez MD Primary Care Provider Encounters Date Type Department Care Team Description 09/28/2024 Orders Only [facility] [address] [place] [address] Unknown, Notinfile from Last 3 Months Allergies No known active allergies Medications multivit-min/FA /lycopen/lutein (CENTRUM SILVER MEN ORAL) Take by mouth. Active dilTIAZem CD/XR/XT (dilTIAZem XR) 120 mg 24 hr capsule Take 1 capsule (120 mg total) by mouth daily 90 capsule 07/28/2024 Active apixaban (Eliquis) 5 mg tablet Take 1 tablet (5 mg total) by mouth 2 (two) times a day 180 tablet 07/28/2024 Active lisinopriL (PRINIVIL,ZESTR IL) 40 mg tablet Take 1 tablet (40 mg total) by mouth daily 90 tablet 07/28/2024 Active Active Problems Problem Noted Date Diagnosed Date Persistent atrial fibrillation 05/04/2022 Assessment & Plan (05/04/2022 1:03 PM CDT): Persistent atrial fibrillation with adequate rate control. Minimal attributable symptoms. If the patient is truly asymptomatic, then a strategy of rate control and anticoagulation is indicated. I recommended that he discontinue dronedarone, but continue on rate slowing medications. The patient has a [id number] score of 2 (annualized risk of stroke 2%). I have therefore recommended lifelong anticoagulation for thromboprophylaxis. I have not scheduled a specific follow up visit, but have asked the patient to contact me if new problems or questions arise. Anticoagulation management encounter 05/04/2022 Chronic kidney disease, stage III (moderate) 10/2019 Essential hypertension 03/16/2019 Paroxysmal atrial fibrillation (CMS/HCC) 019 Asymmetrical sensorineural hearing loss 08/09/20 15 Social History Tobacco Use Types Packs/Day Years Used Date Smoking Tobacco: Never Smokeless Tobacco: Never Tobacco Cessation:Counseling Given: Not Answered Alcohol Use Standard Drinks/Week Comments Yes 3 (1 standard drink = 0.6 oz pur e alcohol) Sex and Gender Information Value Date Recorded Sex Assigned at Not on file Legal Sex Male 11:15 AM ENVELOPE FOLDING MACHINE ADJUSTER Gender Identity Male 07/01/2019 4:39 AM CDT Sexual Orientation Straight 07/01/2019 4: 39 AM CDT Last Filed Vital Signs Vital Sign Reading Time Taken Comments Blood Pressure 132/80 07/13/2024 9:57 AM ENVELOPE FOLDING MACHINE ADJUSTER Pulse 92 07/13/2024 9:57 AM ENVELOPE FOLDING MACHINE ADJUSTER Temperature - - Respiratory Rate 18 05/01/2022 9:51 AM CDT Oxygen Saturation 97% 07/13/2024 9:57 AM ENVELOPE FOLDING MACHINE ADJUSTER Inhaled Oxygen Concentration - - Weight 99.2 kg (218 lb 12.8 oz) 07/13/2024 9:57 AM ENVELOPE FOLDING MACHINE ADJUSTER Height 190.5 cm (6' 3 ) 07/13/2024 9:57 AM ENVELOPE FOLDING MACHINE ADJUSTER Body Mass Index 27.35 07/13/2024 9:57 AM ENVELOPE FOLDING MACHINE ADJUSTER Plan of Treatment Not on file Procedures Procedure Name Priority Date/Time Associated Diagnosis Comments SURGICAL PATHOLOGY Routine 09/28/2024 12 :00 AM ENVELOPE FOLDING MACHINE ADJUSTER from Last 3 Months Results * Surgical pathology (09/28/2024 12:00 AM ENVELOPE FOLDING MACHINE ADJUSTER) Skin, shave biopsy 09/28/2024 09/30/2024 5:26 AM ENVELOPE FOLDING MACHINE ADJUSTER Narrative 10/03/2024 3:08 PM ENVELOPE FOLDING MACHINE ADJUSTER EPIC results best viewed via link to PDF [facility] [address], [place] [address] [email or web address] Note to Patients: This report may contain a detailed description of human tissue sent by a health care provider to the laboratory for pathologic evaluation. The content of this report is essential for diagnosis and may provide important critical findings. This information may be unfamiliar to patients to review without a medical professional present. It is advised that the patient review this report in the presence of a health care provider who can answer questions and explain the details. FINAL REPORT Patient Information: PATIENT NAME: ESSIE ANDERSON SEX: M : 1950 (Age: 74) Specimen Information: COLLECTED: 09/28/2024 RECEIVED: 09/30/2024 REPORTED: 10/03/2024 Submitting Physician Information: Teresita Harvey, [facility], [address] [place] [address], DERMATOPATHOLOGY REPORT RESULTS DIAGNOSIS: A. SKIN, LEFT MID UPPER BACK, SHAVE BIOPSY: COMPOUND MELANOCYTIC NEVUS, LENTIGINOUS TYPE B. SKIN, RIGHT SUPERIOR MEDIAL LOWER BACK, SHAVE BIOPSY: COMPOUND MELANOCYTIC NEVUS, LENTIGINOUS TYPE, RUBBED C. SKIN, PERIUMBILICAL SKIN, SHAVE BIOPSY: COMPOUND MELANOCYTIC NEVUS, LENTIGINOUS TYPE cr/spng By this signature, I attest that the above diagnosis is based upon my personal examination of the slides(and/or other material indicated in the diagnosis). Anirudh Chaney MD, PhD Report Electronically Reviewed and Signed Out By Anirudh Chaney MD, PhD 10/03/2024 15:08:39 CLINICAL INFORMATION A-C. NEOPLASM OF UNCERTAIN BEHAVIOR VS DYSPLASTIC NEVUS SPECIMEN DATA MICROSCOPIC DESCRIPTION: A-C. There is a proliferation of enlarged monomorphous melanocytes arranged as solitary units and small nests within the epidermis, at the dermo-epidermal junction and within the papillary dermis. (D22.9) GROSS DESCRIPTION: A. Received in a formalin-containing bottle is a superficial fragment of pale wright, finely scaling skin measuring 0.6 by 0.5 by 0.1 cm. The surgical margin is inked blue.The specimen bears a flat, brown, well-circumscribed area measuring 0.2 by 0.2 cm. The specimen is sectioned into 2 pieces and submitted entirely in a single cassette. Due to shrinkage, measurements may be different than those at the time of procedure. B. Received in a formalin-containing bottle is a superficial fragment of pale wright, finely scaling, semi-translucent skin measuring 0.9 by 0.5 by 0.1 cm. The surgical margin is inked blue.The specimen bears a flat, brown, well-circumscribed area measuring 0.4 by 0.4 cm. The specimen is sectioned into 2 pieces and submitted entirely in a single cassette. Due to shrinkage, measurements may be different than those at the time of procedure. C. Received in a formalin-containing bottle is a superficial fragment of brown and finely scaling skin measuring 0.4 by 0.4 by 0.1 cm. The surgical margin is inked blue. The specimen is sectioned into 2 pieces and submitted entirely in a single cassette. Due to shrinkage, measurements may be different than those at time of procedure. ag/dxv Clerical Data A; 11548 B; 61946 C; 71605 The characteristics of special, immunohistochemical, and immunofluorescence stains and in-situ hybridization tests performed by the [facility] were deemed acceptable in ongoing quality control checker measures and in compliance with regulations drawn from the Clinical Laboratory Improvement Act [id number] (CLIA '88). Control reactions for all stains performed were deemed adequate and appropriate by a pathologist prior to evaluation of patient tissue. Some diagnoses were rendered with the assistance of laboratory-developed tests utilizing analyte-specific reagents; the performance characteristic of these tests were determined by [facility] and are not cleared or approved by the US Food an Drug administration. Laboratory developed test may only be performed in a facility that is certified by the [facility] as a high-complexity laboratory under CLIA '88. These tests are used for clinical purposes and are not investigational. us Notinfile Unknown LAB PATHOLOGY ORDERABLES Final Result from Last 3 Months Insurance MEDICARE [place] MED[place] SUPPLEMENT Member Subscriber Plan / Payer (Ef fective 2024-Present) Name:Essie Anderson Relation to Subscriber:Self Name:Essie Anderson Payer ID:[id number] Group ID:Not on file Type:COMMERCIAL Address: [place] [id number] MEDICARE [place] MEDICARE SUPPLEMENT Care Teams Hand Molder Meat Relationship Specialty Start Date End Date Malaika Pérez MD PCP - General Family Practice 03/08/18
--- OUTSIDE RECORDS SUMMARY | 2024-11-01 15:35 | XMS_ITS | Referral Summary ---
Author Organization [facility] Address [address] [place] [address] Care Team Providers Care Value Stream Manager Name Role Phone Chuck Little MD Primary Care Provider [phone] Source Comments [facility],non-owned Affiliates and Associated Physician Practices is amultiple site organization consisting of ambulatory clinics and hospital sitesin [place], [place], [place] and [place]. This disclosure is being madepursuant to the Care Everywhere program and may not contain all information available regarding this patient. Last updated 18.[facility] Allergies No known active allergies Medications * Be aware that medications may not be up to date on this document. Alwaysverify current medications with the patient. Medication Sig Dispensed Refills Start Date End Date Status amiodarone (CORDARONE) 200 MG tablet Take 200 mg by mouth 2 times daily 08/25/2018 Active apixaban (ELIQUIS) 5 MG tablet Take 5 mg by mouth 2 times daily 07/09/2018 Active metoprolol succinate XL 24hr (TOPROL XL) 25 MG tablet Take 25 mg by mouth once daily 08/25/2018 Active erythromycin (ROMYCIN) 5 MG/GM ophthalmic ointment Instill into left eye 3 times daily Apply 1/2 inch ribbon to the inner aspect of the lower lid 1 g 02/27/2019 Active ciprofloxacin 0.3% (CILOXAN) 0.3 % ophthalmic solution Instill 1 drop into both eyes every 2 hours Instill 1 drop into both eyes every 2 hours while awake x2 days, then q4hrs WA x 5 days. 5 mL 02/28/2019 Active Active Problems Problem Noted Date Diagnosed Date Asymmetrical sensorineural hearing loss 08/09/20 15 Social History Tobacco Use Types Packs/Day Years Used Date Smoking Tobacco: Never Smokeless Tobacco: Never Sex and Gender Information Value Date Recorded Sex Assigned at Not on file Gender Identity Not on file Sexual Orientation Not on file Last Filed Vital Signs Vital Sign Reading Time Taken Comments Blood Pressure 126/80 02/27/2019 12:48 PM CDT Pulse 84 02/27/2019 12:48 PM CDT Temperature 36.7 C (98 F) 02/27/2019 12:48 PM CDT Respiratory Rate 17 02/27/2019 12:48 PM CDT Oxygen Saturation 95% 02/27/2019 12:48 PM CDT Inhaled Oxygen Concentration - - Weight 100.7 kg (222 lb) 02/27/2019 12:48 PM CDT Height 190.5 cm (6' 3 ) 02/27/2019 12:48 PM CDT Body Mass Index 27.75 02/27/2019 12:48 PM CDT Plan of Treatment Not on file Care Teams Value Stream Manager Relationship Specialty Start Date End Date Chuck Little MD [address] [place] [address] PCP - General 03/22/13
--- OUTSIDE RECORDS SUMMARY | 2024-11-01 15:35 | XMS_ITS | Clinical Summary ---
Author Organization [facility] [address] Address [address] [place] [address] Care Team Providers Care Inking Machine Tender Name Role Phone Malaika Pérez MD Primary Care Provider Allergies No known active allergies Medications multivit-min/FA [...] rate slowing medications. The patient has a [id number] score of 2 (annualized risk of stroke [...] 019 Asymmetrical sensorineural hearing loss 08/09/20 15 Encounters Date Type Department Care Team Description 09/28/2024 Orders Only [facility] [address] [place] [address] Unknown, Notinfile from Last 3 Months Surgical History Surgery Date Site/Laterality Comments FOOT SURGERY Foot Surgery - (Added by TW Conv) HAND SURGERY Hand Surgery - (Added by TW Conv) TONSILLECTOMY Medical History Medical History Date Comments Cataracts, bilateral Kidney stones Family History Medical History Relation Name Comments Cancer Daughter Family history of malignant neoplasm - (Added by TW Conv) Heart attack Father Stroke Father Heart disease Mother Heart failure Mother Stroke Sister Relation Name Status Comments Daughter Father Alive Mother (Age 77) Sister Alive Social History Tobacco Use Types Packs/Day Years Used Date Smoking Tobacco: Never Smokeless Tobacco: Never Tobacco Cessation:Counseling Given: Not Answered Alcohol Use Standard Drinks/Week Comments Yes 3 (1 standard drink = 0.6 oz pur e alcohol) Sex and Gender Information Value Date Recorded Sex Assigned at Not on file Legal Sex Male 11:15 AM ADVERTISING EXECUTIVE Gender Identity Male 07/01/2019 4:39 AM CDT Sexual Orientation Straight 07/01/2019 4: 39 AM CDT Obstetrics History Last Filed Vital Signs Vital Sign Reading Time Taken Comments Blood Pressure 132/80 07/13/2024 9:57 AM ADVERTISING EXECUTIVE Pulse 92 07/13/2024 9:57 AM ADVERTISING EXECUTIVE Temperature - - Respiratory Rate 18 05/01/2022 9:51 AM CDT Oxygen Saturation 97% 07/13/2024 9:57 AM ADVERTISING EXECUTIVE Inhaled Oxygen Concentration - - Weight 99.2 kg (218 lb 12.8 oz) 07/13/2024 9:57 AM ADVERTISING EXECUTIVE Height 190.5 cm (6' 3 ) 07/13/2024 9:57 AM ADVERTISING EXECUTIVE Body Mass Index 27.35 07/13/2024 9:57 AM ADVERTISING EXECUTIVE Plan of Treatment Health Maintenance Due Date Last Done Comments Colon Cancer Screening-Colonoscopy 1950 Depression Screening 1950 Hepatitis C Screening 1950 Hepatitis B Screening 1968 Zoster Vaccine (2 of 3) 08/06/2010 06/11/2010 Well Visit 65+ 2014 Fall Risk Assessment 06/13/2021 06/13/2020, 07/05/20 18 DTaP/Tdap/Td Vaccine (2 - Td or Tdap) 02/23/2024 02/22/2014 Influenza Vaccine (#1) 2024 , 06/16/2019, 06/16/2019, Additional history exists Pneumococcal vaccine 65+ Completed 020, 06/07/2014, 02/22/2014 Procedures Procedure Name Priority Date/Time Associated Diagnosis Comments SURGICAL PATHOLOGY Routine 09/28/2024 12 :00 AM ADVERTISING EXECUTIVE from Last 3 Months Results * Surgical pathology (09/28/2024 12:00 AM ADVERTISING EXECUTIVE) Skin, shave biopsy 09/28/2024 09/30/2024 5:26 AM ADVERTISING EXECUTIVE Narrative 10/03/2024 3:08 PM ADVERTISING EXECUTIVE [facility] results best viewed via link to PDF [facility] [address] [place] [address], [address], [place] [address] [email or web address] Note to Patients: This report may contain [...] REPORTED: 10/03/2024 Submitting Physician Information: Teresita Harvey, [facility] [place], [facility] [place] [address], DERMATOPATHOLOGY REPORT RESULTS DIAGNOSIS: A. SKIN, LEFT [...] time of procedure. ag/dxv Clerical Data A; 16198 B; 77088 C; 22441 The characteristics of special, immunohistochemical, and immunofluorescence stains and in-situ hybridization tests performed by the [facility] were deemed acceptable in ongoing quality assurance coach measures and in compliance with regulations drawn from the Clinical Laboratory Improvement Act [id number] (CLIA '88). Control reactions for all stains performed were deemed adequate and appropriate by a pathologist prior to evaluation of patient tissue. Some diagnoses were rendered with the assistance of laboratory-developed tests utilizing analyte-specific reagents; the performance characteristic of these tests were determined by [facility] and are not cleared or approved by the US Food an Drug administration. Laboratory developed test may only be performed in a facility that is certified by the [facility] as a high-complexity laboratory under CLIA '88. These tests are used for clinical purposes and are not investigational. us Notinfile Unknown LAB PATHOLOGY ORDERABLES Final Result from Last 3 Months Insurance MEDICARE [place] MEDICARE SUPPLEMENT MEDICARE [place] MEDICARE SUPPLEMENT Care Teams Inking Machine Tender Relationship Specialty Start Date End Date Malaika Pérez MD PCP - General Family Practice 03/08/18
--- OUTSIDE RECORDS SUMMARY | 2024-11-01 15:35 | XMS_ITS | Patient Health Summary ---
Author Organization [facility] Address [address] [place] [address] Care Team Providers Care Wick And Base Assembler Name Role Phone Chuck Little MD Primary Care Provider [phone] Note from [facility],non-owned Affiliates and Associated Physician Practices is amultiple site organization consisting of ambulatory clinics and hospital sitesin [place], [place], [place] and [place]. This disclosure is being madepursuant to the Care Everywhere program and may not contain all information available regarding this patient. Last updated 18.[facility] [place] Allergies No known active allergies Medications * Be aware that medications may not be up to date on this document. Alwaysverify current medications with the patient. * amiodarone (CORDARONE) 200 MG tablet(Started 08/25/2018) Take 200 mg by mouth 2 times daily * apixaban (ELIQUIS) 5 MG tablet(Started 07/09/2018) Take 5 mg by mouth 2 times daily * metoprolol succinate XL 24hr (TOPROL XL) 25 MG tablet(Started 08/25/2018) Take 25 mg by mouth once daily * erythromycin (ROMYCIN) 5 MG/GM ophthalmic ointment(Started 02/27/2019) Instill into left eye 3 times daily Apply 1/2 inch ribbon to the inner aspect of the lower lid * ciprofloxacin 0.3% (CILOXAN) 0.3 % ophthalmic solution(Started 02/28/2019) Instill 1 drop into both eyes every 2 hours Instill 1 drop into both eyes every 2 hours while awakex2 days, then q4hrs [place] x 5 days. Active Problems Problem Noted Date Diagnosed Date [...] Mass Index 27.75 02/27/2019 12:48 PM CDT Care Teams Wick And Base Assembler Relationship Specialty Start Date End Date Chuck Little MD [address] [place] [address] PCP - General 03/22/13
--- OUTSIDE RECORDS SUMMARY | 2024-11-01 15:35 | XMS_ITS | Clinical Summary ---
Author Organization [facility] Address [address] [place] [address] Care Team Providers Care Tactical Debriefer Officer Name Role Phone Chuck Little MD Primary Care Provider [phone] Source Comments [facility],non-owned Affiliates and Associated Physician Practices is amultiple site organization consisting of ambulatory clinics and hospital sitesin [place], [place], [place] and [place]. This disclosure is being madepursuant to the Care Everywhere program and may not contain all information available regarding this patient. Last updated 18.[facility] Allergies No known active allergies Medications * [...] Date Asymmetrical sensorineural hearing loss 08/09/20 15 Family History Medical History Relation Name Comments CAD (Coronary Artery Disease) Father [place] 82 years CAD (Coronary Artery Disease) Mother enlarged heart, 77 Relation Name Status Comments Father Mother Social History Tobacco Use Types Packs/Day Years [...] 02/27/2019 12:48 PM CDT Plan of Treatment Health Maintenance Due Date Last Done Comments COLOGUARD (AGES 45-75) - COL ON CA SCREENING 1949 COLON MONITORING 1949 COLONOSCOPY - COLON CA SCREENING 1949 CT COLONOGRAPHY - COLON CA SCREENING 1950 Colorectal Cancer Screening 1949 FIT - COLON CA SCREENING 1949 FLEX SIG - COLON CA SCREENING 1949 LIPID TESTING 1949 HEPATITIS C SCREENING 02/10/1967 DTAP/TDAP/TD VACCINES (1 - Tdap) 02/15/1968 PNEUMOCOCCAL VACCINE 50+ (1 of 1 - PCV) 1999 ZOSTER VACCINE (1 of 2) 1999 SCREENING FOR DIABETES 02/27/2019 Respiratory Syncytial Virus (RSV) Vaccine Pt: or over 60 yrs (1 - 1-dose 75+ series) 02/15/2024 COVID-19 VACCINE ( - 2023-2 5 season) 2024 INFLUENZA VACCINE (#1) 2024 DEPRESSION SCREENING 09/07/2024 HEPATITIS B VACCINE Aged Out No longe r eligible based on patient's age to complete this topic HIB VACCINE Aged Out No longer eligi ble based on patient's age to complete this topic HPV VACCINE Aged Out No longer eligi ble based on patient's age to complete this topic MENINGOCOCCAL (Group B) VACCINE Aged Out No longer eligible based on patient's age to complete this topic MENINGOCOCCAL VACCINE Aged Out No adelso landry eligible based on patient's age to complete this topic Care Teams Tactical Debriefer Officer Relationship Specialty Start Date End Date Chuck Little MD [address] [place] [address] PCP - General 03/22/13
--- OUTSIDE RECORDS SUMMARY | 2024-11-01 15:35 | XMS_ITS | Clinical Summary ---
Author Organization [facility] Address [address], [place] [address] Phone Care Team Providers Care Bar Staff Name Role Phone Malaika Pérez MD Primary Care Provider Allergies No known active allergies Medications Medication Sig Dispensed Refills Start Date End Date Status Multiple Vitamins-Minerals (MULTIVITAL-M PO) Take by mouth Acti ve ELIQUIS 5 MG tablet Take 5 mg by mouth 2 (two) times a day 08/12/2019 Active DILT-XR 120 MG 24 hr capsule Take 120 mg by mouth 1 (one) time each day 08/12/2019 Active Multaq 400 MG tablet Take 400 mg by mouth 2 (two) times a day with meals 09/06/2020 Active lisinopril (PRINIVIL) 40 MG tablet Take 40 mg by mouth 1 (one) time each day Active Active Problems Problem Noted Date Diagnosed Date Stage 3a chronic kidney disease 09/08/2019 Paroxysmal atrial fibrillation 03/16/2019 Essential hypertension 03/16/2019 Asymmetrical sensorineural hearing loss 08/09/20 15 Immunizations Name Administration Dates Next Due Fluzone High-Dose 05/02/2020 Influenza Split High Dose Preservative Free IM 1 Influenza TIV (IM) 05/22/2021,06/07/2019 Influenza, Quadrivalent 06/16/2019,06/21/2018 Pneumococcal Conjugate 06/07/2014 Pneumococcal Conjugate 13-Valent 05/02/2020 Pneumococcal Polysaccharide 02/22/2014 Tdap 02/22/2014 Zoster 06/11/2010 Family History Medical History Relation Comments Kidney disease Neg Hx Social History Tobacco Use Types Packs/Day Years Used Date Smoking Tobacco: Never Smokeless Tobacco: Never Alcohol Use Standard Drinks/Week Comments Yes 0 (1 standard drink = 0.6 oz pur e alcohol) occasional Sex and Gender Information Value Date Recorded Sex Assigned at Not on file Gender Identity Not on file Sexual Orientation Not on file Last Filed Vital Signs Vital Sign Reading Time Taken Comments Blood Pressure 118/76 04/23/2022 9:44 AM CDT Pulse 72 04/23/2022 9:44 AM CDT Temperature 36.3 C (97.4 F) 04/23/2022 9:44 AM CDT Respiratory Rate - - Oxygen Saturation - - Inhaled Oxygen Concentration - - Weight 98 kg (216 lb) 04/23/2022 9:44 AM CDT Height 190.5 cm (6' 3 ) 04/23/2022 9:44 AM CDT Body Mass Index 27 04/23/2022 9:44 AM CDT Plan of Treatment Health Maintenance Due Date Last Done Comments Influenza Vaccine (#1) 2024 05/22/2021, 2018 Pneumococcal PPSV23/PCV13 65 + Years / High and Highest Risk Completed 05/02/2020, 02/22/2014 Care Teams Bar Staff Relationship Specialty Start Date End Date Malaika Pérez MD [address] [place] [address] PCP - General Internal Medicine 08/02/19
== END 2024-11-01 13:36 | disposition home or self-care (01) ==
LOC: ANHIMG 13:37
PROVIDERS: PCP Family Medicine; Visit Provider Family Medicine
DX: I73.9 Peripheral vascular disease, unspecified (principal)
CPT/HCPCS: 93923

== ENCOUNTER 2025-01-23 11:23 | Emergency (ER) | payer MEDICARE, SELFPAY ==
--- NOTE | ~2025-01-23 | XR_ITS ---
XR chest apical lordotic only Ordering provider: Donnie Ulrich APRN History: 74 years Male with . apical opacity, cough for 2 days . Comparison: January 23, 2025 FINDINGS: MEDIASTINUM: The cardiac silhouette is not enlarged. LUNGS: No infiltrates, effusions or pneumothorax. OTHER: No free air under the diaphragm. IMPRESSION: No acute cardiopulmonary pathology. Reviewed, dictated and finalized at location A.
--- NOTE | ~2025-01-23 | XR_ITS ---
XR chest 2V Ordering provider: Donnie Ulrich APRN History: 74 years Male with . cough 2 days, crackles, non smoker . Comparison: May 25, 2022 FINDINGS: MEDIASTINUM: The cardiac silhouette is not enlarged. LUNGS: Opacity in the right apical area which is most likely summation shadow apical views advised. N o infiltrates, effusions or pneumothorax. OTHER: No free air under the diaphragm. IMPRESSION: No acute cardiopulmonary pathology. Opacity in the right apical area. Apical views are advised. Reviewed, dictated and finalized at location A.
[2025-01-23 11:27] VITALS: BP 128/82; PULSE 100; RESP 16; TEMP 36.2; O2SAT 99
[2025-01-23 11:55] LABS: EDCOVIDSCREEN Negative (Negative); EDINFLUASCREEN Negative (Negative); EDINFLUBSCREEN Negative (Negative); EDSTREPNEGPOS1 Negative (Negative)
--- NOTE | 2025-01-23 12:11 | ED_ITS ---
HPI - URI/Sore Throat General Chief Complaint: Upper Respiratory Infection Stated Complaint: Cough/Sore Throat Time Seen by Provider: 01/23/25 12:05 Source: patient and RN notes reviewed Mode of arrival: ambulatory Limitations: no limitations History of Present Illness HPI Narrative: 74-year-old male presents Express Care complain of upper respiratory symptoms for 2 days. Patient reports cough, sore throat, and malaise. Patient reports the cough is productive has been getting worse. Patient reports that he is coughing green yellow sputum up. Patient denies any fevers, chills, body aches, chest pain, shortness of breath, congestion, runny nose, ear pain, nausea, vomiting, or diarrhea. Patient has a history of AFib and hypertension. Patient takes Eliquis for his AFib. Patient has not been taking anything qzrg-pnf-izsncmg for symptoms. Related Data Home Medications Medication Instructions Recorded Confirmed Last Taken Type apixaban 5 mg tablet (Eliquis) 5 mg PO BID 08/02/19 09/20/24 11/02/22 10:15 History diltiazem HCl 120 mg capsule,24 120 mg PO DAILY 08/02/19 09/20/24 11/04/22 09:00 History hr,extended release lisinopril 20 mg tablet 40 mg PO DAILY 05/26/22 09/20/24 11/04/22 09:00 History tljpugbn-ytkrocys-eaawc acid 400 1 tablet PO DAILY 10/29/22 09/20/24 11/01/22 History mcg-vit K 20 mcg-lycop 300 mcg tablet Allergies Allergy/AdvReac Type Severity Reaction Status Date / Time No Known Allergies Allergy Verified 01/23/25 11:56 Review of Systems Review of Systems: CONSTITUTIONAL: Denies fever, chills, body aches, or sweats. Positive for malaise. EYES: Denies visual changes, redness, or discharge. ENT: Denies rhinorrhea, congestion, or otalgia. Positive for sore throat. CARDIOVASCULAR: Denies chest pain, palpitations, or edema. RESPIRATORY: Positive for cough. Negative dyspnea. GASTROINTESTINAL: Denies abdominal pain, nausea, vomiting, or diarrhea. GENITOURINARY: Denies dysuria or hematuria. SKIN: Denies rash or itching. MUSCULOSKELETAL: Denies back pain, joint pain, or myalgia. NEUROLOGIC: Denies headache, numbness, or weakness. PSYCHIATRIC: Denies anxiety or depression. All other systems reviewed are negative, except as documented in HPI. 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, right, degenerative Neuropathy involving both lower extremities Chronic venous insufficiency of lower extremity History of rectal polyps Right wrist fracture Carpal tunnel syndrome, bilateral CKD (chronic kidney disease) stage 3, GFR 30-59 ml/min History of cardioversion 03/2018 Paroxysmal atrial fibrillation Essential (primary) hypertension Surgical History Surgical History Hx of left inguinal hernia repair Robotic LAP LIH 11/05/22 History of bunionectomy of right great toe 2000 History of carpal tunnel surgery b/l 2012- 2014 Family History Family History Father Acute myocardial infarction Sibling Cerebrovascular accident Mother Heart disease Social History Social History Social History: caffeine use Smoking status: Never smoker Second hand tobacco smoke exposure: No Alcohol intake: current Drinks per week: 1 Substance use: never Substance use type: does not use Lack of Transportation: No Current Housing: I Have Housing Concerned About Future Housing: No Difficulty Paying Gas/Electric Bills: No Difficulty Paying for Meds: No Currently Unemployed: No Education: Bachelor's Degree Difficulty w/ Childcare or Family Care: No Living arrangements: with family Additional living arrangements comments: Occupation/Education: retired Gender identity (if verbalized by the patient): Male Spiritual care concerns: No Agree to blood products: Yes Comments At the time of my signature, I reviewed and agree with the nursing past medical, surgical, social, and family history. There is no relevant family history pertinent to the patient complaint. Exam Narrative: GENERAL: This is a well-nourished, well-developed adult, in no apparent distress. They are non ill-appearing, nontoxic appearing. HEAD: normocephalic, atraumatic. EYES: Sclera clear/white. Conjunctiva normal. Vision is grossly intact. Ext raocular movements intact EARS: External ears normal, auditory canals clear and without drainage, TMs normal without perforation. Hearing grossly intact. NOSE: External nose normal with no obvious nasal discharge, nasal turbinates without redness, no rhinorrhea. THROAT: Mucous membranes moist, posterior pharynx erythemic without swelling. No exudate. Postnasal drip present. Uvula midline. NECK: Neck supple, non-tender without lymphadenopathy, masses or thyromegaly. CARDIOVASCULAR: Regular rate and rhythm without murmurs, gallops, or rubs. RESPIRATORY: Crackles present to the bilateral lower lobes. Breath sounds equal bilaterally. No wheezes or rhonchi. Respiratory rate normal, respiratory effort nonlabored, no respiratory distress SKIN: warm, Dry, intact with no suspicious lesions or rash, good texture and turgor. NEURO: awake, alert, and oriented to person, place and time. There were no obvious focal neurologic abnormalities. EXTREMITIES: No joint tenderness, effusion, or edema noted. BACK: Nontender without deformity. Course Course Emergency Course: Portions of this record may have been created with voice recognition software Level of Care: Express Care Visit Vital Signs Vital signs: Vital Signs Temperature 97.2 F L 01/23/25 11:27 Pulse Rate 100 01/23/25 11:27 Respiratory Rate 16 01/23/25 11:27 Blood Pressure 128/82 01/23/25 11:27 Pulse Oximetry 99 01/23/25 11:27 Oxygen Delivery Room Air 01/23/25 11:27 Temperature 97.2 F L 01/23/25 11:27 Pulse Rate 100 01/23/25 11:27 Respiratory Rate 16 01/23/25 11:27 Blood Pressure 128/82 01/23/25 11:27 Pulse Oximetry 99 01/23/25 11:27 Oxygen Delivery Room Air 01/23/25 11:27 Reviewed MDM - URI/Sore Throat MDM Narrative Medical decision making narrative: Rapid COVID, flu, strep were negative. Throat culture pending. Chest x-ray showed no evidence of pneumonia or any acute findings. Given patient's symptoms is likely the patient has a purulent bronchitis. Will treat empirically with azithromycin. Discussed physical exam findings. Advised supportive measures and signs/symptoms to go to the ER. Pt is appropriate for outpt treatment and f/u. Differential Diagnosis Differential diagnosis: Likely upper respiratory infection, viral infection and other (Pneumonia) Lab Data Attestation: I reviewed the patient's lab results. Labs: Lab Results 01/23/25 Range/Units 11:32 POC Influenza A Ag Negative (Negative) POC Influenza B Ag Negative (Negative) POC SARS CoV-2 Ag Negative (Negative) POC Grp A Strep Screen Negative (Negative) Critical Care Time Critical Care Time Critical Care Time: No Discharge Plan Discharge Clinical Impression: Acute purulent bronchitis Patient Disposition: Home Condition: Stable Instructions: Antibiotic Form, Acute Bronchitis (ED) Additional Instructions: Your rapid strep, flu, COVID are negative today. A throat culture will be sent off he will be contacted if he tests positive for strep throat. Appropriate antibiotics will be prescribed to if your throat culture is positive. Your chest x-ray was negative for any evidence of pneumonia or any other acute findings. Please take the antibiotics as directed. You may take Tylenol or ibuprofen as needed for pain or fevers. Follow-up with primary care provider in 3-5 days. If symptoms worsen, he developed chest pain, shortness of breath, fevers, or any other concerns please go to the ER immediately. Patient Language: Occitan Prescriptions: New azithromycin 250 mg tablet See Rx Instructions .ROUTE .COMPLEX Qty: 6 0RF Rx Instructions: For 250 mg dose pack: take 500 mg today (day 1), then 250 mg for 4 days (days 2-5) No Action Eliquis 5 mg tablet 5 mg PO BID lisinopril 20 mg tablet 40 mg PO DAILY diltiazem HCl 120 mg capsule,extended release 24 hr 120 mg PO DAILY Patient Comments: TAKES QPM methylprednisolone [Medrol (Salazar)] 4 mg tablets,dose pack See Rx Instructions PO PER PKG DIR Qty: 21 0RF Rx Instructions: PO PER PKG DIR pluklnhe-kcm-lsrtj-vit K-lycop 400-20-300 mcg Tablet 1 tablet PO DAILY gabapentin 100 mg capsule 100 mg PO TID Qty: 90 5RF Follow-up/Referrals: Delmer Pérez MD [Primary Care Provider] - Time of Disposition: 13:11
== END 2025-01-23 13:52 | disposition home or self-care (01) ==
PROVIDERS: PCP Family Medicine
DX: J20.9 Acute bronchitis, unspecified (principal); Z20.822 Contact with and (suspected) exposure to COVID-19; I12.9 Hypertensive chronic kidney disease with stage 1 through stage 4 chronic kidney disease, or unspecified chronic kidney disease; N18.30 Chronic kidney disease, stage 3 unspecified; I48.0 Paroxysmal atrial fibrillation; G62.9 Polyneuropathy, unspecified; M19.032 Primary osteoarthritis, left wrist; M19.071 Primary osteoarthritis, right ankle and foot; Z79.01 Long term (current) use of anticoagulants
CPT/HCPCS: 71045; 71046; 87081; 87426; 87804; 87880; 99213; G0463

== ENCOUNTER 2025-06-08 08:12 | Outpatient (CLI) | payer MEDICARE, SELFPAY ==
[2025-06-08 13:04] LABS: Hematocrit 45.7 % (42.0-52.0); Hemoglobin 14.4 g/dL (14.0-18.0); Immature Granulocyte Percent A 0.2 % (0-0.5); Lymphocytes Absolute Auto 1.88 K/mm3 (0.9-3.2); Mean Corpuscular HGB Conc 31.5 g/dl (32-36); Mean Corpuscular Hemoglobin 30.9 pg (26-34); Mean Corpuscular Volume 98.1 fl (80-100); Nucleated Red Blood Cells Absolute Auto 0.000 K/mm3 (0.0-0.012); Nucleated Red Blood Cells Perc 0.0 % (0.0-0.2); Platelet Count Result 215 k/mm3 (150-375); Red Blood Count 4.66 M/mm3 (4.6-6.20); White Blood Count 8.7 K/mm3 (4.5-10.0)
[2025-06-08 13:09] LABS: Alanine Aminotransferase 17 U/L (6-50); Albumin Level 4.0 g/dL (3.5-5.1); Alkaline Phosphatase 73 U/L (38-126); Anion Gap 6 mmol/L (4-12); Aspartate Amino Transferase 42 U/L (17-59); Bilirubin,Total 1.0 mg/dL (0.2-1.3); Blood Urea Nitrogen 26 mg/dL (9-20); Calcium 8.8 mg/dL (8.4-10.2); Carbon Dioxide 27 mmol/L (22-30); Chloride 104 mmol/L (98-107); Cholesterol 157 mg/dL (0-200); Estimated Glomerular Filt Rate > 60; Glucose 96 mg/dL (65-110); HDL Direct 45 mg/dL; Potassium 4.6 mmol/L (3.4-5.0); Sodium 137 mmol/L (137-145); Total Protein 6.6 g/dL (6.3-8.2); Triglycerides 76 mg/dL (<150)
[2025-06-08 13:46] LABS: Prostate Specific Antigen 1.5 ng/mL (< OR = 4.0)
[2025-06-08 13:49] LABS: Thyroid Stimulating Hormone Reflex 0.847 uIU/mL (0.465-4.68)
[2025-06-08 14:00] LABS: Hemoglobin A1C 6.1 % (<5.7)
[2025-06-08 14:04] LABS: Vitamin B12 512.0 pg/mL (239-931)
== END 2025-06-08 08:13 | disposition home or self-care (01) ==
LOC: ANHGOSHLAB 08:13
PROVIDERS: PCP Family Medicine; Visit Provider Family Medicine
DX: I12.9 Hypertensive chronic kidney disease with stage 1 through stage 4 chronic kidney disease, or unspecified chronic kidney disease (principal); N18.31 Chronic kidney disease, stage 3a; E53.8 Deficiency of other specified B group vitamins; Z12.5 Encounter for screening for malignant neoplasm of prostate; R73.03 Prediabetes; E78.5 Hyperlipidemia, unspecified; E55.9 Vitamin D deficiency, unspecified; R74.01 Elevation of levels of liver transaminase levels
CPT/HCPCS: 36415; 80053; 80061; 82306; 82607; 83036; 84153; 84443; 85025; G0103

== ENCOUNTER 2025-06-19 03:14 | Day surgery (SDC) | payer MEDICARE, SELFPAY ==
[2025-06-14 08:58] VITALS: BMI 26.9
--- NOTE | 2025-06-14 09:17 | SUR.PREOP ---
Spoke with patient in regards to holding his Eliquis for his upcoming procedure on 06/19/2025. Last dose is on 06/15/25 and patient verbalized understanding.
--- OUTSIDE RECORDS SUMMARY | 2025-06-19 03:17 | XMS_ITS | Clinical Summary ---
Author Organization [facility] Address [address] [place] [address] Care Team Providers Care Avionics Engineer Name Role Phone Chuck Little MD Primary Care Provider [phone] Source Comments [facility],non-owned Affiliates and Associated Physician Practices is amultiple site organization consisting of ambulatory clinics and hospital sitesin [place], [place], [place] and [place]. This disclosure is being madepursuant to the Care Everywhere program and may not contain all information available regarding this patient. Last updated 18.[facility] Allergies No known active allergies Medications * Be aware that medications may not be up to date on this document. Alwaysverify current medications with the patient. 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 Gender Identity Not on file Sexual Orientation [...] 12:48 PM CDT Height 190.5 cm (6' 3) 02/27/2019 12:48 PM CDT Body Mass Index 27.75 02/27/2019 12:48 PM CDT Plan of Treatment Health Maintenance Due Date Last Done Comments HEPATITIS C SCREENING 02/10/1967 DTAP/TDAP/TD VACCINES (1 - Tdap) 02/15/1968 PNEUMOCOCCAL VACCINE 50+ (1 of 1 - PCV) 1999 ZOSTER VACCINE (1 of 2) 1999 SCREENING FOR DIABETES 02/27/2019 Respiratory Syncytial Virus (RSV) Vaccine Pt: or over 60 yrs (1 - 1-dose 75+ series) 02/15/2024 DEPRESSION SCREENING 09/07/2024 COVID-19 VACCINE ( - 2023-2 5 season) 2025 INFLUENZA VACCINE (#1) 2025 HEPATITIS B VACCINE Aged Out No longe r eligible based on patient's age to complete this topic HIB VACCINE Aged Out No longer eligi ble based on patient's age to complete this topic HPV VACCINE Aged Out No longer eligi ble based on patient's age to complete this topic MENINGOCOCCAL (Group B) VACC INE SHARED DECISION-MAKING Aged Out No longer eligibl e based on patient's age to complete this topic MENINGOCOCCAL GROUPS A/C/Y/W VACCINE Aged Out No longer eligible b ased on patient's age to complete this topic Insurance ANTHEM ANTHEM Care Teams Avionics Engineer Relationship Specialty Start Date End Date Chuck Little MD [address] [place] [address] PCP - General 03/22/13
--- OUTSIDE RECORDS SUMMARY | 2025-06-19 03:17 | XMS_ITS | Clinical Summary ---
Author Organization [facility] [place] [address] Address [address] [place] [address] Care Team Providers Care Deck Mechanic Name Role Phone Malaika Pérez MD Primary Care Provider Allergies No known active allergies Medications multivit-min/FA /lycopen/lutein (CENTRUM SILVER MEN ORAL) Take by mouth. Active dilTIAZem CD/XR/XT (DILT-XR) 120 mg 24 hr capsule Take 1 capsule (120 mg total) by mouth daily 90 capsule 3 01/02/2025 Active apixaban (Eliquis) 5 mg tablet Take 1 tablet (5 mg total) by mouth 2 (two) times a day 180 tablet 3 01/18/2025 Active lisinopriL (PRINIVIL,ZESTR IL) 40 mg tablet TAKE 1 TABLET(40 MG) BY MOUTH DAILY 90 tablet 1 03/13/2025 Active Active Problems Problem Noted Date Diagnosed Date Persistent atrial fibrillation 05/04/2022 Assessment & Plan (05/04/2022 1:03 PM CDT): Persistent atrial fibrillation with adequate rate control. Minimal attributable symptoms. If the patient is truly asymptomatic, then a strategy of rate control and anticoagulation is indicated. I recommended that he discontinue dronedarone, but continue on rate slowing medications. The patient has a [id number] score of 2 (annualized risk of stroke 2%). I have therefore recommended lifelong anticoagulation for thromboprophylaxis. I have not scheduled a specific follow up visit, but have asked the patient to contact me if new problems or questions arise. Anticoagulation management encounter 05/04/2022 Chronic kidney disease, stage III (moderate) 10/2019 Essential hypertension 03/16/2019 Paroxysmal atrial fibrillation 03/16/2019 Asymmetrical sensorineural hearing loss 08/09/20 15 Encounters Date Type Department Care Team Description 06/09/2025 Telephone [facility] Cardiology [address] [place] [phone] Keith Connelly MD from Last 3 Months Surgical History Surgery Date Site/Laterality Comments FOOT SURGERY Foot Surgery - (Added by Conv) HAND SURGERY Hand Surgery - (Added by Conv) TONSILLECTOMY Medical History Medical History Date Comments Cataracts, bilateral Kidney stones Family History Medical History Relation Name Comments Cancer Daughter Family history of malignant neoplasm - (Added by Conv) Heart attack Father Stroke Father Heart [...] on file Legal Sex 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 Gender Identity Male 07/01/2019 4:39 AM CDT Sexual Orientation Straight 07/01/2019 4: 39 AM CDT Obstetrics History Last Filed Vital Signs Vital Sign Reading Time Taken Comments Blood Pressure 132/80 07/13/2024 9:57 AM COSMETIC CHEMIST Pulse 92 07/13/2024 9:57 AM COSMETIC CHEMIST Temperature - - Respiratory Rate 18 05/01/2022 9:51 AM CDT Oxygen Saturation 97% 07/13/2024 9:57 AM COSMETIC CHEMIST Inhaled Oxygen Concentration - - Weight 99.2 kg (218 lb 12.8 oz) 07/13/2024 9:57 AM COSMETIC CHEMIST Height 190.5 cm (6' 3) 07/13/2024 9:57 AM COSMETIC CHEMIST Body Mass Index 27.35 07/13/2024 9:57 AM COSMETIC CHEMIST Plan of Treatment Health Maintenance Due Date Last Done Comments Depression Screening 1950 Hepatitis C Screening 1950 Hepatitis B Screening 1968 Zoster Vaccine (2 of 3) 08/06/2010 06/11/2010 Well Visit 65+ 2014 Fall Risk Assessment 06/13/2021 06/13/2020, 07/05/20 18 DTaP/Tdap/Td Vaccine (2 - Td or Tdap) 02/23/2024 02/22/2014 Influenza Vaccine (#1) 2025 1, 06/16/2019, 06/16/2019, Additional history exists Pneumococcal vaccine 65+ Completed 020, 06/07/2014, 02/22/2014 Insurance MEDICARE [employer] SU[employer]MENT MEDICARE [employer] Care Teams Deck Mechanic Relationship Specialty Start Date End Date Malaika Pérez MD PCP - General Family Practice 03/08/18
--- OUTSIDE RECORDS SUMMARY | 2025-06-19 03:17 | XMS_ITS | Clinical Summary ---
Author Organization [facility] Address [address], [place] [address] Phone Care Team Providers Care Senior Chemical Engineer Name Role Phone Malaika Pérez MD Primary Care Provider Allergies No known active allergies Medications Multiple Vitamins-Mineral s (MULTIVITAL-M PO) Take by mouth Active ELIQUIS 5 MG tablet Take 5 mg [...] Asymmetrical sensorineural hearing loss 08/09/20 15 Immunizations Immunization Administration Dates Next Due Fluzone High-Dose 05/02/2020 [...] at Not on file Legal Sex Male 10:12 AM MST Gender Identity Not on file Sexual Orientation [...] 9:44 AM CDT Height 190.5 cm (6' 3) 04/23/2022 9:44 AM CDT Body Mass Index 27 04/23/2022 9:44 AM CDT Plan of Treatment Health Maintenance Due Date Last Done Comments Influenza Vaccine (#1) 2025 05/22/2021, 2018 Pneumococcal PPSV23/PCV13 65 + Years / Low and Medium Risk Completed 05/02/2020, 02/22/2014 Insurance [facility] Care Teams Senior Chemical Engineer Relationship Specialty Start Date End Date Malaika Pérez MD [address] [place] [address] PCP - General Internal Medicine 08/02/19
[2025-06-19 06:18] VITALS: BP 132/76; PULSE 94; RESP 18; TEMP 36; O2SAT 99
[2025-06-19] MEDS: LACTATED RINGERS 1,000 ML 150 ML IV CONT (06:27)
--- NOTE | 2025-06-19 06:58 | WPDANESEPPF ---
Anes - Initial Pre Proc Eval Procedure: Operation Date: 06/19/25 07:30 Proposed Procedures p Screening Colonoscopy - Victor Hugo Neal MD Date/Time: 06/19/25 06:58 Surgeon: Victor Hugo Neal MD Pre Op Diagnosis: Personal history of colon polyps, unspecified Patient Data Age: 75 Gender: M Height: 1.91 m Weight: 96.1 kg Last Vital Signs Temp 36.0 C L 06/19/25 06:18 Pulse 94 06/19/25 06:18 Resp 18 06/19/25 06:18 BP 132/76 06/19/25 06:18 Pulse Ox 99 06/19/25 06:18 O2 Del Method Room Air 06/19/25 06:18 Allergies Allergy/AdvReac Type Severity Reaction Status Date / Time No Known Allergies Allergy Verified 06/19/25 06:16 Home Medications ?Medication ?Instructions ?Recorded ?Confirmed ?Type apixaban 5 mg tablet (Eliquis) 5 mg PO BID 08/02/19 06/19/25 History diltiazem HCl 120 mg capsule,24 120 mg PO DAILY 08/02/19 06/19/25 History hr,extended release lisinopril 40 mg tablet 40 mg PO DAILY 06/07/25 06/19/25 History Patient hx anesthesia problems: none Family hx anesthesia problems: none Results Review: All pre-operative results and documents have been reviewed as part of the pre-operative evaluation. 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, right, degenerative Neuropathy involving both lower extremities History of rectal polyps Right wrist fracture Carpal tunnel syndrome, bilateral CKD (chronic kidney disease) stage 3, GFR 30-59 ml/min History of cardioversion 03/2018 Paroxysmal atrial fibrillation Essential (primary) hypertension Surgical History Surgical History Hx of left inguinal hernia repair Robotic LAP LIH 11/05/22 History of bunionectomy of right great toe 2000 History of carpal tunnel surgery b/l 2012- 2014 Family History Family History Father Acute myocardial infarction Sibling Cerebrovascular accident Mother Heart disease Social History Social History Social History: caffeine use Smoking status: Never smoker Second hand tobacco smoke exposure: No Alcohol intake: current Drinks per week: 1 Substance use: never Substance use type: does not use Lack of Transportation: No Current Housing: I Have Housing Concerned About Future Housing: No Difficulty Paying Gas/Electric Bills: No Difficulty Paying for Meds: No Currently Unemployed: No Education: Bachelor's Degree Difficulty w/ Childcare or Family Care: No Living arrangements: with family Additional living arrangements comments: with sp Occupation/Education: retired Gender identity (if verbalized by the patient): Male Spiritual care concerns: No Agree to blood products: Yes Anes - Eval Final PreProcedure Day of Procedure 06/19/25 06:58 Patient weight: overweight Heart: regular rate and rhythm Lungs: clear to auscultation Airway: Mallampati scale class II Neurological: alert and oriented Last oral intake: >/= 8 hours ASA classification: III Emergent: no Anesthetic plan: proceed Anesthesia type and monitoring: general GIVS and standard monitoring Results Review: All pre-operative results and documents have been reviewed as part of the pre-operative evaluation. Informed Consent: The patient's anesthetic plan and its attendant risks and benefits were discussed with the patient/family/POA. Questions were solicited and answers provided to the satisfaction of the patient/family/POA.
--- NOTE | 2025-06-19 07:35 | PM.IMHP ---
H&P: HPI History of Present Illness Date/Time: 06/19/25 07:35 Chief Complaint: History of colon polyp Narrative: The patient has a history of colonic polyps, the last colonoscopy was in 2019. 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, right, degenerative Neuropathy involving both lower extremities History of rectal polyps Right wrist fracture Carpal tunnel syndrome, bilateral CKD (chronic kidney disease) stage 3, GFR 30-59 ml/min History of cardioversion 03/2018 Paroxysmal atrial fibrillation Essential (primary) hypertension Surgical History Surgical History Hx of left inguinal hernia repair Robotic LAP LIH 11/05/22 History of bunionectomy of right great toe 2000 History of carpal tunnel surgery b/l 2012- 2014 Family History Family History Father Acute myocardial infarction Sibling Cerebrovascular accident Mother Heart disease Social History Social History Social History: caffeine use Smoking status: Never smoker Second hand tobacco smoke exposure: No Alcohol intake: current Drinks per week: 1 Substance use: never Substance use type: does not use Lack of Transportation: No Current Housing: I Have Housing Concerned About Future Housing: No Difficulty Paying Gas/Electric Bills: No Difficulty Paying for Meds: No Currently Unemployed: No Education: Bachelor's Degree Difficulty w/ Childcare or Family Care: No Living arrangements: with family Additional living arrangements comments: with sp Occupation/Education: retired Gender identity (if verbalized by the patient): Male Spiritual care concerns: No Agree to blood products: Yes Meds Home Medications and Allergies Home Medications ?Medication ?Instructions ?Recorded ?Confirmed ?Type apixaban 5 mg tablet (Eliquis) 5 mg PO BID 08/02/19 06/19/25 History diltiazem HCl 120 mg capsule,24 120 mg PO DAILY 08/02/19 06/19/25 History hr,extended release lisinopril 40 mg tablet 40 mg PO DAILY 06/07/25 06/19/25 History Allergies Allergy/AdvReac Type Severity Reaction Status Date / Time No Known Allergies Allergy Verified 06/19/25 06:16 Vital Signs Vital Signs - 24 hr 06/19/25 06:18 Temperature 96.8 F L Pulse Rate 94 Respiratory Rate 18 Blood Pressure 132/76 Pulse Oximetry 99 Oxygen Delivery Room Air Exam Const: General: cooperative and healthy appearing Resp: Effort & Inspection: normal respiratory effort and able to speak in complete sentences Auscultation: clear to auscultation bilaterally Cardio: Rate: regular rate Rhythm: regular rhythm GI: Inspection: normal to inspection GI Palp: No No hepatosplenomegaly present Auscultation: normal bowel sounds Rectal Exam: deferred Skin: General skin exam: normal color Psych: Appearance: grossly normal Mental Status: mental status grossly normal Assessment and Plan Assessment and plan (1) History of colon polyps: Code(s): Z86.010 - Personal history of colon polyps Status: Acute Assessment and Plan: The patient is deemed a good candidate for the procedure. Consent signed. Will proceed.
--- NOTE | 2025-06-19 07:52 | S_PTH ---
PATIENT: Ryan Veloz LOC: [facility] U#:[id number] AGE/SX: 75/M ROOM: RE06/19/[address]: Victor Hugo Neal MD : 1950 BED: DIS: 06/19/2025 SPEC #: [id number] RECD: 06/19/25 09:11 STATUS: TERE RE #: [id number] JUAN DIEGO: 06/19/25 07:[address]: Victor Hugo Neal DEPT: [facility] Surgical RECD BY: Wanda Barr ENTERED: 06/19/25 09:12 SP TYPE: Surgical OTHR DR: Malaika Pérez MD Tissues: A - Colon Polypectomy B - Colon Polypectomy C - Colon Polypectomy Procedures: Hematoxylin and Eosin Stain Gross and Microscopic Level 4
[2025-06-19 07:53] VITALS: BP 106/78; PULSE 91; RESP 15; O2SAT 96
[2025-06-19 08:03] VITALS: BP 109/78; PULSE 87; RESP 21; O2SAT 99
[2025-06-19 08:13] VITALS: BP 118/85; PULSE 90; RESP 17; O2SAT 97
== END 2025-06-19 08:25 | disposition home or self-care (01) ==
PROVIDERS: PCP Family Medicine; Referring Provider Family Medicine; Visit Provider Internal Medicine Gastroenterology
PROC: 0DJD8ZZ Inspection of Lower Intestinal Tract, Via Natural or Artificial Opening Endoscopic (ICD-10-PCS; CPT 45378; principal; 2025-06-19 07:30)
DX: Z12.11 Encounter for screening for malignant neoplasm of colon (principal); D12.3 Benign neoplasm of transverse colon; D12.2 Benign neoplasm of ascending colon; K63.5 Polyp of colon; K64.8 Other hemorrhoids; K57.30 Diverticulosis of large intestine without perforation or abscess without bleeding; I12.9 Hypertensive chronic kidney disease with stage 1 through stage 4 chronic kidney disease, or unspecified chronic kidney disease; E13.22 Other specified diabetes mellitus with diabetic chronic kidney disease; N18.30 Chronic kidney disease, stage 3 unspecified; I48.0 Paroxysmal atrial fibrillation; M19.032 Primary osteoarthritis, left wrist; M19.071 Primary osteoarthritis, right ankle and foot; G62.9 Polyneuropathy, unspecified; Z79.01 Long term (current) use of anticoagulants; Z98.890 Other specified postprocedural states; Z86.79 Personal history of other diseases of the circulatory system; Z82.49 Family history of ischemic heart disease and other diseases of the circulatory system
CPT/HCPCS: 45385; 88305; J2704; J7120